=== PATIENT | female | born 1965 | race Two or more races ===

== ENCOUNTER 2024-07-14 08:46 | Outpatient (AMB) | payer MEDICAID, SELFPAY ==
[2024-07-14 09:08] VITALS: BP 109/76; PULSE 89; RESP 19; TEMP 35.9; O2SAT 97; BMI 35.0
--- NOTE | 2024-07-14 09:08 | ORTHONT_ITS ---
Vital signs 07/14/24 09:08 Height 1.73 m Height Method Stated Weight 104.808 kg Weight Measurement Method Standing Scale BMI 35.0 BP 109/76 Blood Pressure Source Automatic Cuff Blood Pressure Location Left Upper Arm Position Sitting Respiration 19 Pulse 89 Pulse Source Monitor Temp 96.7 F L Temp Source Temporal Artery Scan Pulse Oximetry (%) 97 Oxygen Delivery Method Room Air Med/Allergies Allergies & Medications Allergies No Known Allergies Allergy (Verified 07/14/24 09:09) Medication Reconciliation No Known Home Medications 05/05/24 [History Confirmed 07/14/24] Subjective Visit Visit for: follow up visit Immunization / Flu Flu Vaccine in the Last 12 Months: No Flu Vaccine Exclusion Criteria: No Exclusion Criteria History of Present Illness Chief complaint: FOLLOW UP Selena is a pleasant 58-year-old female With bilateral knee pain and bilateral hip arthritis. The right knee is worse than the left. The pain started affect her quality life and happiness. She has had injections every 3 months for 2 years. The last knee injection was 2 weeks ago. She reports she has gained a little bit of weight but is now stable. She takes Tylenol arthritis. She has pain in her groin as well as on the side of her pelvis as well. She can put on socks and shoes. She uses a cane She has lost some weight since we last saw her. She has lost 20 pounds since we last saw her Personal History Occupation: UNEMPLOYED Hobbies: WALKING Red flag PMH: none Pain Pain level (0-10): 10 Pain duration: CONSTANT Pain location: inside (medial) Pain quality: sharp, aching and burning Pain timing: night and increases with activity Associated signs & symptoms: none Ambulatory data Ambulatory device: cane Treatments Number of previous injections: 5 Improvement with previous injections: No Improvement with PT: No Improvement with NSAIDS: no Review of Systems Review of Systems: All systems negative unless otherwise noted in HPI. Exam Exam Patient is in no acute distress and is cooperative with the examination today. Breathing is nonlabored. In no respiratory distress. Bilateral extremities were evaluated and demonstrates sensation intact to light touch. Palpable pedal pulses are present. No significant edema is present. Bilateral hips were examined. The patient has no pain with log roll of the hips. Internal rotation to 0 degrees and external rotation to 15 degrees is painless. Negative FADIR. The left knee was examined. The left knee is in [varus] alignment. Range of motion from [0-115] degrees. Knee is stable to varus and valgus as well as AP translation with <5mm. Patient has a [negative] McMurrays. There is [no] pain with patellofemoral compression and [no] crepitus noted. The knee is [tender] to palpation [medially]. The right knee was also examined. The right knee is in [varus] alignment. Range of motion from [0-120] degrees. Knee is stable to varus and valgus as well as AP translation with <5mm. Patient has a [negative] McMurrays. There is [no] pain with patellofemoral compression and [no] crepitus noted. The knee is [tender] to palpation [medially]. X-rays are from [facility].X-rays demonstrate bilateral joint space narrowing and varus deformity. There Is complete obliteration of the medial joint space. SHe also has bilateral hip arthritis with complete obliteration of the joint space Assessment and Plan Problem List (1) Degenerative arthritis of knee, bilateral: Status: Acute Plan: Patient is a pleasant 58-year-old female with bilateral hip and knee arthritis of significant severity. We discussed nonoperative operative options. She is lost 20 pounds since we last saw her. She would like bilateral knee injections today. Will continue with conservative management that she continues to lose weight rapidly Recommend knee cortisone injections as patient would like to proceed with conservative treatment at this time. The risks and benefits of the procedure were reviewed with the patient and patient gave verbal consent to continue with the procedure. Procedure: performed by Dr. Moreno Using sterile technique the Bilateral knees were thoroughly prepped with alcohol, and approximately 1 cc of Kenalog 40 mg/mL and 4 cc of 1% lidocaine was injected into each knee without resistance into the medial tibial femoral joint space. The patient tolerated the procedure. (2) Bilateral hip joint arthritis: Status: Acute Office Procedures GNS Level of Care Nursing/Assessment Patient Status: Established Patient Nursing Assessment/Reassesment: Medication Reconciliation, Update PMH in EMR and Vital Signs Coordination of Care: Complex Care and Chronic Disease 1-5, Education Complex Pt/Fam, Consent,records obtained, informed consent, Results/Orders obtained and Staff clarify orders Established Patient Charge Established Patient Point Assignment: 95 Established Patient Point Charge: EP Level 3 (80-115) Surgical Proc/IM SQ injection Major Surgical Procedure: Yes (KNEE INJECTIONS ) Medication Given Medication Given Medication Given: Yes Documented Dose Given: 8 Route: Infiitration Medication Given Medication Given Medication Given: Yes Documented Dose Given: 2 Route: Infiitration Office Meds Xylocaine 10 mg/mL (1 %) injection solution Performing Provider: Marv Moreno MD Performing Location: [facility] Administered by: Marv Moreno MD on 07/14/24 15:37 Dose Route Admin Location Dispensed Lot Number Expiration Date [facility] Cap Sewer 40 mL Infiltration 40 mL [id number] [facility] triamcinolone acetonide 40 mg/mL suspension for injection Performing Provider: Marv Moreno MD Performing Location: [facility] Administered by: Marv Moreno MD on 07/14/24 15:37 Dose Route Admin Location Dispensed Lot Number Expiration Date [facility] Cap Sewer 80 mg intra-articular 2 mL [id number] [employer] Past Medical History Past Medical History Have you ever been diagnosed with any of the following: Cardiology Problems Myocardial Infarction: No Hypertension: Yes Respiratory Problems Asthma: Yes Smoking: No Smoking Cessation Counseling: No Smoking Exposure: No Endocrine Problems Diabetes Mellitus Type 2: Yes
== END 2024-07-14 09:26 | disposition home or self-care (01) ==
LOC: HODSRG 08:46
PROVIDERS: PCP Physician Assistant Medical; Referring Provider Physician Assistant Medical; Supervising Provider Orthopaedic Surgery Adult Reconstructive Orthopaedic Surgery; Visit Provider Orthopaedic Surgery Adult Reconstructive Orthopaedic Surgery
DX: M17.0 Bilateral primary osteoarthritis of knee (principal); M16.0 Bilateral primary osteoarthritis of hip; I10 Essential (primary) hypertension; E11.9 Type 2 diabetes mellitus without complications
CPT/HCPCS: 20610; 99213; J3301; J3490; G0463

== ENCOUNTER 2024-10-13 09:18 | Outpatient (AMB) | payer MEDICAID, SELFPAY ==
--- NOTE | 2024-10-13 09:33 | ORTHONT_ITS ---
Vital signs 10/13/24 09:47 Height 1.73 m Height Method Stated Weight 97.664 kg Weight Measurement Method Standing Scale BMI 32.6 BP 106/72 Blood Pressure Source Automatic Cuff Blood Pressure Location Left Upper Arm Position Sitting Respiration 19 Pulse 91 Pulse Source Monitor Temp 98.0 F Temp Source Temporal Artery Scan Pulse Oximetry (%) 97 Oxygen Delivery Method Room Air Med/Allergies Allergies & Medications Allergies No Known Allergies Allergy (Verified 10/13/24 09:48) Medication Reconciliation No Known Home Medications 05/05/24 [History Confirmed 10/13/24] Exam Exam Patient is in no acute distress and is cooperative with the examination today. Breathing is nonlabored. In no respiratory distress. Bilateral extremities were evaluated and demonstrates sensation intact to light touch. Palpable pedal pulses are present. No significant edema is present. Bilateral hips were examined. The patient has no pain with log roll of the hips. Internal rotation to 0 degrees and external rotation to 15 degrees is painless. Negative FADIR. The left knee was examined. The left knee is in [varus] alignment. Range of cecelia on from [0-115] degrees. Knee is stable to varus and valgus as well as AP translation with <5mm. Patient has a [negative] McMurrays. There is [no] pain with patellofemoral compression and [no] crepitus noted. The knee is [tender] to palpation [medially]. The right knee was also examined. The right knee is in [varus] alignment. Range of motion from [0-120] degrees. Knee is stable to varus and valgus as well as AP translation with <5mm. Patient has a [negative] McMurrays. There is [no] pain with patellofemoral compression and [no] crepitus noted. The knee is [tender] to palpation [medially]. X-rays are from [facility].X-rays demonstrate bilateral joint space narrowing and varus deformity. There Is complete obliteration of the medial joint space. SHe also has bilateral hip arthritis with complete obliteration of the joint space Assessment and Plan Problem List (1) Degenerative arthritis of knee, bilateral: Status: Acute Plan: Patient is a pleasant 58-year-old female with bilateral hip and knee arthritis of significant severity. We discussed nonoperative operative options. She has lost a total of 60 pounds in total. She would like bilateral knee injections today. She would also like a right total hip replacement as is affecting her quality life and happiness. We discussed total hip replacement in great detail and she would like to proceed. We Will do this with a lateral approach. Recommend knee cortisone injections as patient would like to proceed with conservative treatment at this time. The risks and benefits of the procedure were reviewed with the patient and patient gave verbal consent to continue with the procedure. Procedure: performed by Dr. Moreno Using sterile technique the Bilateral knees were thoroughly prepped with alcohol, and approximately 1 cc of Kenalog 40 mg/mL and 4 cc of 1% lidocaine was injected into each knee without resistance into the medial tibial femoral joint space. The patient tolerated the procedure. The nature and purpose of the total hip replacement, alternative method(s) of treatment, the material risks involved, and the possibility of complications were fully explained to the patient. The patient does NOT have any of the following contraindications to ZACH: - Active infection of the hip joint, OR - Active systemic bacteremia, OR - Active skin infection or open wound at surgical site, OR - Neuropathic arthritis, OR - Severe, rapidly progressive neurological disease, OR - Severe medical condition that makes risks of the surgery outweigh the potential benefit The patient was told the most common risks and complications associated with a total hip replacement include, but are not limited to: blood clots in the leg, fatal pulmonary embolism, dislocation of the prosthesis, intraoperative and postoperative fractures of the femur or acetabulum, infection, failure of the prosthesis or grafting materials, complications from anesthesia, reactions to blood transfusions, postoperative leg length inequality, instability of the hip replacement, nerve damage or injury, vascular injury, delayed wound healing, infection, other injury or even . In addition, there are risks associated with anesthesia given during this operation. Also, the patient was told that after undergoing a total hip replacement there may still be persistent pain or disability. The patient was informed that the success of this operation in part depends upon the mechanical devices which are going to be implanted and that these devices can fail or malfunction, and may need to be repaired or replaced and there are no guarantees as to the longevity of this device or its parts and that it or its parts could fail prematurely. The patient was also notified that during the course of surgery, there may be a need to use bone graft from donors, and that any bone graft used will be carefully screened for communicable diseases, including AIDS, hepatitis, Carlitos-Creutzfeldt, or other diseases, but despite the screening procedures, there is a small chance that they could contract one of these diseases. Finally, the patient was asked to follow completely and fully with all advice and recommended treatments, and that recovery and ultimate outcome are affected by their compliance with recommended treatment. We discussed the risks, benefits and treatment alternatives, and the patient is interested in proceeding with surgery. We will try to set this up as expeditiously as possible. (2) Bilateral hip joint arthritis: Status: Acute Office Procedures GNS Level of Care Nursing/Assessment Patient Status: Established Patient Nursing Assessment/Reassesment: Medication Reconciliation, Update PMH in EMR and Vital Signs Coordination of Care: Complex Care and Chronic Disease 1-5, Education Complex Pt/Fam, Consent,records obtained, informed consent, Results/Orders obtained and Staff clarify orders Established Patient Charge Established Patient Point Assignment: 95 Established Patient Point Charge: EP Level 3 (80-115) Surgical Proc/IM SQ injection Major Surgical Procedure: Yes (BILARERAL KNEE INJECTION) Medication Given Medication Given Medication Given: Yes Documented Dose Given: 8 Route: Infiitration Medication Given Medication Given Medication Given: Yes Documented Dose Given: 2 Route: Infiitration Office Meds Xylocaine 10 mg/mL (1 %) injection solution Performing Provider: Marv Moreno MD Performing Location: [facility] Administered by: Marv Moreno MD on 10/13/24 10:04 Dose Route Admin Location Dispensed Lot Number Expiration Date [facility] Otolaryngology Rep 40 mL Infiltration 40 mL [id number] 02/09/28 60027-199-58 [facility] triamcinolone acetonide 40 mg/mL suspension for injection Performing Provider: Marv Moreno MD Performing Location: [facility] Administered by: Marv Moreno MD on 10/13/24 10:04 Dose Route Admin Location Dispensed Lot Number Expiration Date [facility] Otolaryngology Rep 80 mg intra-articular 2 mL [id number] 01/08/26 9607-7194-10 [facility] [place] Intake Visit Data Collection New Patient or Established: Established Patient (seen at [facility] within 3 years) Reason for Visit:: BILATERAL KNEE INJECTION Seen by Clinical Staff ONLY (RN/MA): No Interventional Physiatrist Required: No PCP or OBGYN visit in last 3 months: Yes Hx Now: No Do You Feel Safe at Home: Yes Authorities Contacted: N/A Questionairres Past Medical History Past Medical History Have you ever been diagnosed with any of the following: Cardiology Problems Myocardial Infarction: No Hypertension: Yes Respiratory Problems Asthma: Yes Smoking: No Smoking Cessation Counseling: No Smoking Exposure: No Endocrine Problems Diabetes Mellitus Type 2: Yes Subjective Visit Visit for: follow up visit, knee (BILATERAL) and injections Immunization / Flu Flu Vaccine in the Last 12 Months: No Flu Vaccine Exclusion Criteria: No Exclusion Criteria History of Present Illness Chief complaint: Right hip pain Selena is a pleasant 59-year-old female with bilateral hip and bilateral knee pain. This has been ongoing for a while. She is using a cane because of the pain. We have done prior knee injections in the past and they work about 3 months. She is also had a right hip injection in the past that provided very little relief. The pain is affecting her quality life and happiness Pain Pain level (0-10): 8 Pain duration: ALL DAY Pain location: inside (medial) and anterior Pain quality: dull and aching Pain timing: increases with activity and stairs Ambulatory data Ambulatory device: cane Treatments Improvement with previous injections: Yes Improvement with PT: No Improvement with NSAIDS: no Review of Systems Review of Systems: All systems negative unless otherwise noted in HPI.
[2024-10-13 09:47] VITALS: BP 106/72; PULSE 91; RESP 19; TEMP 36.7; O2SAT 97; BMI 32.6
== END 2024-10-13 09:54 | disposition home or self-care (01) ==
LOC: HODSRG 09:18
PROVIDERS: PCP Physician Assistant Medical; Referring Provider Physician Assistant Medical; Supervising Provider Orthopaedic Surgery Adult Reconstructive Orthopaedic Surgery; Visit Provider Orthopaedic Surgery Adult Reconstructive Orthopaedic Surgery
DX: M25.561 Pain in right knee (principal); M25.562 Pain in left knee; M25.551 Pain in right hip; M17.0 Bilateral primary osteoarthritis of knee
CPT/HCPCS: 20610; 99213; J3301; J3490; G0463

== ENCOUNTER 2024-10-30 13:44 | Outpatient (AMB) | payer MEDICAID, SELFPAY ==
--- NOTE | 2024-10-30 14:05 | ORTHONT_ITS ---
Vital signs 10/30/24 14:10 Height 1.73 m Height Method Stated Weight 98.118 kg Weight Measurement Method Standing Scale BMI 32.8 BP 98/65 Blood Pressure Source Automatic Cuff Blood Pressure Location Right Upper Arm Position Sitting Respiration 18 Pulse 83 Pulse Source Monitor Temp 98.0 F Temp Source Temporal Artery Scan Pulse Oximetry (%) 97 Oxygen Delivery Method Room Air Med/Allergies Allergies & Medications Allergies No Known Allergies Allergy (Verified 10/13/24 09:48) Exam Exam Patient is in no acute distress and is cooperative with the examination today. Breathing is nonlabored. In no respiratory distress. Bilateral extremities were evaluated and demonstrates sensation intact to light touch. Palpable pedal pulses are present. No significant edema is present. Bilateral hips were examined. The patient has no pain with log roll of the hips. Internal rotation to 0 degrees and external rotation to 15 degrees is painless. Negative FADIR. The left knee was examined. The left knee is in [varus] alignment. Range of motion from [0-115] degrees. Knee is stable to varus and valgus as well as AP translation with <5mm. Patient has a [negative] McMurrays. There is [no] pain with patellofemoral compression and [no] crepitus noted. The knee is [tender] to palpation [medially]. The right knee was also examined. The right knee is in [varus] alignment. Range of motion from [0-120] degrees. Knee is stable to varus and valgus as well as AP translation with <5mm. Patient has a [negative] McMurrays. There is [no] pain with patellofemoral compression and [no] crepitus noted. The knee is [tender] to palpation [medially]. X-rays are from [facility].X-rays demonstrate bilateral joint space narrowing and varus deformity. There Is complete obliteration of the medial joint space. SHe also has bilateral hip arthritis with complete obliteration of the joint space Assessment and Plan Problem List (1) Degenerative arthritis of knee, bilateral: Status: Acute Plan: Patient is a pleasant 58-year-old female with bilateral hip and knee arthritis of significant severity. We discussed nonoperative operative options. She has lost a total of 60 pounds in total. She would like bilateral knee injections today. She would also like a right total hip replacement as is affecting her quality life and happiness. We discussed total hip replacement in great detail and she would like to proceed. We Will do this with a lateral approach. The nature and purpose of the total hip replacement, alternative method(s) of treatment, the material risks involved, and the possibility of complications were fully explained to the patient. The patient does NOT have any of the following contraindications to ZACH: - Active infection of the hip joint, OR - Active systemic bacteremia, OR - Active skin infection or open wound at surgical site, OR - Neuropathic arthritis, OR - Severe, rapidly progressive neurological disease, OR - Severe medical condition that makes risks of the surgery outweigh the potential benefit The patient was told the most common risks and complications associated with a total hip replacement include, but are not limited to: blood clots in the leg, fatal pulmonary embolism, dislocation of the prosthesis, intraoperative and postoperative fractures of the femur or acetabulum, infection, failure of the prosthesis or grafting materials, complications from anesthesia, reactions to blood transfusions, postoperative leg length inequality, instability of the hip replacement, nerve damage or injury, vascular injury, delayed wound healing, infection, other injury or even . In addition, there are risks associated with anesthesia given during this operation. Also, the patient was told that after undergoing a total hip replacement there may still be persistent pain or disability. The patient was informed that the success of this operation in part depends upon the mechanical devices which are going to be implanted and that these devices can fail or malfunction, and may need to be repaired or replaced and there are no guarantees as to the longevity of this device or its parts and that it or its parts could fail prematurely. The patient was also notified that during the course of surgery, there may be a need to use bone graft from donors, and that any bone graft used will be carefully screened for communicable diseases, including AIDS, hepatitis, Carlitos-Creutzfeldt, or other diseases, but despite the screening procedures, there is a small chance that they could contract one of these diseases. Finally, the patient was asked to follow completely and fully with all advice and recommended treatments, and that recovery and ultimate outcome are affected by their compliance with recommended treatment. We discussed the risks, benefits and treatment alternatives, and the patient is interested in proceeding with surgery. We will try to set this up as expeditiously as possible. (2) Bilateral hip joint arthritis: Status: Acute Office Procedures GNS Level of Care Nursing/Assessment Patient Status: Established Patient Nursing Assessment/Reassesment: BP Monitoring, Medication Reconciliation, Update PMH in EMR and Vital Signs Coordination of Care: Complex Care and Chronic Disease 1-5, Consent,records obtained, informed consent and Lab and Imaging orders Established Patient Charge Established Patient Point Assignment: 90 Established Patient Point Charge: EP Level 3 (80-115) MA Intake Visit Data Collection New Patient or Established: Established Patient (seen at [facility] within 3 years) Reason for Visit:: PREOP RTHA Seen by Clinical Staff ONLY (RN/MA): No Verbal consent obtained for Telemed visit?: No PCP or OBGYN visit in last 3 months: No Hx Now: No Do You Feel Safe at Home: Yes Authorities Contacted: N/A Questionairres Past Medical History Past Medical History Have you ever been diagnosed with any of the following: Cardiology Problems Myocardial Infarction: No Hypertension: Yes Respiratory Problems Asthma: Yes Smoking: No Smoking Cessation Counseling: No Smoking Exposure: No Endocrine Problems Diabetes Mellitus Type 2: Yes Subjective Visit Visit for: follow up visit (PREOP ZACH) Immunization / Flu Flu Vaccine in the Last 12 Months: No Flu Vaccine Exclusion Criteria: No Exclusion Criteria History of Present Illness Chief complaint: PRE OP Selena is a pleasant 59-year-old female with bilateral hip and bilateral knee pain. This has been ongoing for a while. She is using a cane because of the pain. We have done prior knee injections in the past and they work about 3 months. She is also had a right hip injection in the past that provided very little relief. The pain is affecting her quality life and happiness. We are scheduled for hip replacement in 3 weeks Pain Pain level (0-10): 5 Pain duration: CONSTANT Pain location: inside (medial), outside (lateral) and anterior Pain quality: sharp, dull and aching Pain timing: increases with activity and stairs Ambulatory data Ambulatory device: cane Treatments Improvement with previous injections: Yes Improvement with PT: No Improvement with NSAIDS: no Review of Systems Review of Systems: All systems negative unless otherwise noted in HPI.
[2024-10-30 14:10] VITALS: BP 98/65; PULSE 83; RESP 18; TEMP 36.7; O2SAT 97; BMI 32.8
== END 2024-10-30 14:40 | disposition home or self-care (01) ==
LOC: HODSRG 13:44
PROVIDERS: PCP Physician Assistant Medical; Referring Provider Physician Assistant Medical; Supervising Provider Orthopaedic Surgery Adult Reconstructive Orthopaedic Surgery; Visit Provider Orthopaedic Surgery Adult Reconstructive Orthopaedic Surgery
DX: M17.0 Bilateral primary osteoarthritis of knee (principal); I10 Essential (primary) hypertension; J45.909 Unspecified asthma, uncomplicated; M16.0 Bilateral primary osteoarthritis of hip
CPT/HCPCS: 99213; G0463

== ENCOUNTER → 2024-11-18 | Outpatient (CLI) | payer MEDICAID, SELFPAY ==
--- NOTE | 2024-11-18 08:00 | XR_ITS ---
Examination: CT right lower extremity, without contrast. 2-D sagittal reconstructions. 2-D coronal reconstructions. 3-D reconstructions. Date and time of exam:November 18, 2024 0846 hrs. Indications: Diagnosis unilateral primary osteoarthritis right hip, right hip pain one year CTDI: vol (mGy):16.7 DLP: (mGycm):993 Technique: Multiple 1.25 mm axial sections of the right lower extremity without intravenous contrast have been obtained. 2-D sagittal and coronal reconstructions have been obtained. 3-D reconstructions have been obtained. Low dose protocols were performed. One or more of the following dose reduction techniques were used; automated exposure control, adjustment of the mA and/or KV according to patient size, use of iterative reconstruction technique. Findings: Severe osteopenia Severe right hip osteoarthritis, severe joint space narrowing and subarticular sclerotic changes Advanced left hip osteoarthritis Bones of the pelvis intact Severe narrowing [id number] medial joint space right knee Advanced narrowing medial joint space left knee Significant bilateral osteoarthritis lateral patellofemoral joints Impression: Severe right hip osteoarthritis Advanced left hip osteoarthritis Significant bilateral tricompartment knee osteoarthritis
== END | disposition home or self-care (01) ==
PROVIDERS: PCP Student in an Organized Health Care Education/Training Program; Referring Provider Orthopaedic Surgery Adult Reconstructive Orthopaedic Surgery; Visit Provider Orthopaedic Surgery Adult Reconstructive Orthopaedic Surgery
DX: M16.11 Unilateral primary osteoarthritis, right hip (principal); M16.0 Bilateral primary osteoarthritis of hip; M17.0 Bilateral primary osteoarthritis of knee
CPT/HCPCS: 72192; 73700

== ENCOUNTER 2024-11-25 05:50 | Day surgery (SDC) | payer MEDICAID, SELFPAY ==
[2024-11-24 09:12] VITALS: BMI 32.6
[2024-11-24 11:42] LABS: Basophils # (Auto) 0.1 Thou/mm3 (0.0-0.2); Basophils % (Auto) 1 % (0-2.5); Eosinophils # (Auto) 0.1 Thou/mm3 (0.0-0.5); Eosinophils % (Auto) 1 % (0-10); Hematocrit 33.3 % (36.0-46.0); Hemoglobin 10.8 g/dL (12.0-16.0); Immature Granulocytes % (Auto) 0 % (0-0); Immature Granulocytes Auto 0.02 Thou/mm3 (0.00-0.00); Lymphocytes % (Auto) 29 % (10-50); Mean Corpuscular HGB Conc 32.4 g/dl (31.0-37.0); Mean Corpuscular Hemoglobin 29.9 pg (25.0-35.0); Mean Corpuscular Volume 92 fL (80-100); Monocytes # (Auto) 0.4 Thou/mm3 (0.0-0.8); Monocytes % (Auto) 6 % (0-12); Neutrophils # (Auto) 4.2 Thou/mm3 (1.8-7.7); Neutrophils % (Auto) 62 % (37-80); Nucleated Red Blood Cell % 0 /100 WBC (0); Platelet Count 295 Thou/mm3 (140-440); RDW Standard Deviation 47.4 fL (36.4-46.3); Red Blood Count 3.61 Miln/mm3 (4.00-5.20); White Blood Count 6.8 Thou/mm3 (3.6-11.0)
[2024-11-24 11:51] LABS: Partial Thromboplastin Time 24.5 Seconds (22.0-36.0); Prothrombin Time 10.8 Seconds (9.0-12.2)
[2024-11-24 12:04] LABS: Alanine Aminotransferase 15 U/L (10-49); Albumin, Serum 4.4 gm/dL (3.4-4.8); Albumin/Globulin Ratio 1.8 (1.2-2.2); Alkaline Phosphatase 82 U/L (46-116); Anion Gap 8 (7-16); Aspartate Amino Transferase 13 U/L (0-34); BUN/Creatinine Ratio 15 Ratio (12-20); Bilirubin,Total 0.5 mg/dL (0.3-1.2); Blood Urea Nitrogen 12 mg/dL (9-23); Calcium 9.4 mg/dL (8.3-10.6); Calcium (Corrected) 9.4 mg/dL (8.5-10.1); Carbon Dioxide 29.9 mMol/L (20.0-31.0); Chloride 103 mMol/L (98-107); Creatinine (Component) 0.8 mg/dL (0.6-1.3); Estimated Creatinine Clearance 91.3 mL/min (>60); Globulin 2.5 gm/dL (2.3-3.5); Glucose 96 mg/dL (74-106); Osmolality,Calculated 280 (275-295); Potassium 3.5 mMol/L (3.4-5.1); Sodium 141 mMol/L (136-145); Total Protein 6.9 gm/dL (5.7-8.2); eGFR > 60 See Note
[2024-11-25] VITALS (27 sets, daily range): BP systolic 79–126; BP diastolic 50–82; PULSE 65–105; RESP 12–94; TEMP 36.1–37; O2SAT 93–100; BMI 32.6
[2024-11-25] MEDS: ACETAMINOPHEN 325 MG TABLET 650 MG PO (06:35)
[2024-11-25] MEDS: PREGABALIN 75 MG CAPSULE PO (06:35)
[2024-11-25] MEDS: MELOXICAM 7.5 MG TABLET PO ×2 (06:35→20:25)
[2024-11-25] MEDS: RINGERS LACTATED 1000 ML 1,000 ML 20 ML IV (06:36)
--- NOTE | 2024-11-25 07:15 | CHAP ---
Visited with patient giving encouragement, comfort and prayer.
--- NOTE | 2024-11-25 09:38 | XR_ITS ---
Examination: Right hip 2 views TECHNIQUE: AP and attempted lateral right hip 2 views Exam date and time: November 25, 2024 0939 hours INDICATIONS: Right hip arthroplasty today FINDINGS: Partial visualization acetabular cup and prosthetic right hip stem IMPRESSION: Limited study
--- NOTE | 2024-11-25 10:39 | ESOP_ITS ---
Date of Procedure 11/25/24 Pre Op Diagnosis right hip osteoarthritis Post Op Diagnosis right hip osteoarthritis Procedure right total hip replacement Findings full thickness cartilage loss and osteophytes Procedure Description Indications: The patient is a 59y.o. year-old with a longstanding history of right hip pain. After considering the patient's condition and the impact of their hip injury on the patient's quality of life and risks of nonoperative treatment, total hip replacement was offered as a reasonable option. Prior to the surgery I discussed the nature of the hip replacement surgery including alternatives to surgery and the purpose of, and indications for proceeding with surgery. I discussed that this surgery is a shared decision between the patient and the surgeon. Risks and benefits and alternatives of the procedure have been explained to the patient and their family. Anesthesia complications and risks include but are not limited to stroke, heart attack, and . The surgical risks include but are not limited to infection, instability/dislocation, bleeding, nerve and blood vessel injury, deep vein thrombosis, pulmonary embolus, stiffness, pain, scar, need for reoperation, leg length discrepancy, thigh numbness, weakness, and mechanical failure of the implant including loosening, metal complications, metal allergy, wear or breakage. I discussed the expected recovery from surgery and the importance of compliance with all our pre and post-operative recommendations in order to maximize the recovery. The patient/family understands the risks of loss of life, loss of limb and, loss of function and wishes to proceed. They understand they are at increased risk for infection given their history of smoking. A signed and witnessed consent was obtained and placed in the chart. Patient Positioning: The patient was placed in the lateral decubitus position on a standard table using a pegboard. An axillary role was placed. All extremities were padded to ensure adequate protection. A kerr catheter was aseptically inserted. Time Out: A timeout was performed prior to the procedure which verified the correct patient, positioning, operation to be performed, operative site, antibiotics, allergies, imaging, and any other concerns. All parties were in agreement. Procedure in detail: The operative site was cleaned and draped in the usual sterile fashion. A final timeout was performed with all parties in agreement. We first placed the pelvic array. A modified anterolateral approach to the hip was utilized. A 16cm skin incision was made centered over the greater trochanter in line with the femur. This was taken down through skin and subcutaneous tissue using a 10 blade. Bleeding was controlled using electrocautery. The fascia was identified and split in line with the femur. The charnley retractor was then placed. The abductor insertion was identified and a split made in the anterior 1/3 of the tendon proximally. Retractors were placed and the gluteus minimus was visualized. A capsulotomy was made down to the femoral neck anterior to the minimus. A split was then made in the anterior 1/3 of the vastus lateralis. A retractor was then placed anterior to the femoral shaft, the tendon was tagged with #1 ethibond sutures and a U-shaped split was made in the anterior 1/3 of the abductor tendon being careful to leave enough tendon to re-attach. The hip was then gently externally rotated as the anterior tissues were taken down with the tendon and capsule as one sleeve. Once the anterior tissue had been release off of bone a bone hook was placed and the hip was gently dislocated. Retractors were placed around the femoral neck and the femoral neck osteotomy was then made to freshen up the cut. The femoral head removed. The leg was then placed in extension and retractors were placed anterior and posterior to the acetabulum. The inferior capsule was release to improved visua lization and the labrum and osteophytes around the acetabulum were removed. The acetabulum was then reamed to bleeding bone with adequate wall coverage and the cup was impacted into place. Screws were then placed followed by the liner which was impacted and confirmed to be seated. We then turned our attention to the femur. The leg was brought into external rotation and the femur was exposed. A canal finder was used followed by a box osteotomy and the femur was broached sequentially. The trial stem was then left in and the hip was trialed using various neck offsets and head sizes until the appropriate size was found based on leg length, stability. The hip was then dislocated and the trials were then removed and the final stem impacted into placed. On the last tap of the femoral implant a crack was observed of the anterior cortex. It was explored and was not found to extend more than 3cm down and was nondisplaced. We removed the implant and placed two cables one below and one above the lesser trochanter ensuring that we hugged bone. We rotated the femoral stem and it was stable axially. The hip was then again trialed and the appropriate head size identified. The piedra taper was then cleaned and dried and the final head impact into place and tested. The acetabulum was irrigated and confirmed to be free of debris. The hip was then reduced and taken through range of motion. The hip was stable in abduction and external rotation, adduction and external rotation, flexion past 90 degrees and internal rotation past 20 degrees. It did not sublux throughout range of motion and no impingement was detected. Leg lengths were appropriately restored based on preoperative leg lengths and intraoperative testing. . The hip was then copiously irrigated with dilute betadine followed by normal saline. The hip was then injected with the cocktail per protocol The hip was the closed in layers. The abductor tendon was closed with #1 ethibond. The fascia was closed with 0 Vicryl followed by an 0 V-lock. . The deep layer was closed with 0-Vicryl and the subcutaneous layer by a 2-0 Vicryl. The subdermal layer was closed with a 3-0 monocryl. The skin was then cleaned and dried and steri-s trips placed followed by a sterile dressing. The drapes were then taken down and the patient was placed supine. Leg lengths were confirmed to be appropriate and the patient's lower extremities were warm and well perfused with brisk capillary refill and palpable pulses. The patient was then awoken, transferred to the [facility] and taken to the PACU in stable condition. They tolerated the procedure well. The patient's family/caregiviers were made aware of their condition. Postoperative plan Activity: TTWB RLE, no hip precautions , no active hip abduction DVT Prophylaxis: aspirin 81mg BID Antibiotics: Standard postoperative antibiotics x 24 hours Implants: Amrita 48 cup, 3HO insignia, 2 screws, standard liner, 36-2.5 head Anesthesia GETA Drains none Pathology / specimen None Pathology comment: none Estimated Blood Loss 200 Condition Stable Disposition floor Surgeon Marv Moreno MD Surgical Staff Operation Date: 11/25/24 07:30 Case Staff Anesthesiologist: Marcin Alicia RN First Assistant: Delmis Roy
--- NOTE | 2024-11-25 10:39 | XR_ITS ---
Examination:Right hip AP, lateral, AP pelvis 3 views Technique: Hip AP lateral, AP pelvis, 3 views Exam date and time:November 25, 2024 1144 hours INDICATIONS: Postop right hip arthroplasty FINDINGS: Total right hip arthroplasty. Satisfactory alignment. No fracture. Bones of the pelvis intact. Advanced left hip osteoarthritis IMPRESSION: Total right hip arthroplasty with satisfactory alignment.
--- NOTE | 2024-11-25 11:15 | SUR.PHASEI ---
1115: Pt. AAOx4, vitals stable, breathing unlabored, no complaint of pain or nausea, dressing to right hip CDI, no active bleed noted, bilateral dorsalis pedis pulses strong and regular, cap refill to bilateral feet less than 3 seconds, pt. able to move bilateral legs, report received from MD Alicia and Raghu RAY.
--- NOTE | 2024-11-25 11:49 | SUR.PHASEI ---
pt lying in bed with eyes open, VS stable, xray at bedside, report from Sanjuana RAY
--- NOTE | 2024-11-25 11:55 | SUR.PHASEI ---
pt awake, alert, able to follow commands, breathing unlabored, dressing to right hip clean, dry, and intact, pt tolerating oral fluids without difficulty swallowing or n/v
--- NOTE | 2024-11-25 12:10 | SUR.PHASEII ---
while pt sleeps, O2 drops to 89%, 3L nasal cannula applied, O2 returned to 97%
--- NOTE | 2024-11-25 12:26 | SUR.PHASEII ---
Report to Sanjuana RAY
[2024-11-25] MEDS: ALBUTEROL RT 2.5 MG/3 ML NEBU INH (13:08)
[2024-11-25] MEDS: ACETAMINOPHEN IVPB 1,000 MG/100 ML VIAL 250 MG IV (13:58)
[2024-11-25] MEDS: HYDROmorphone INJ 2 MG/ML VIAL 0.4 MG IV (15:11)
--- NOTE | 2024-11-25 16:37 | SUR.PHASEII ---
1637: Report given to Evelyn RAY. Pt. AAOx4, vitals stable, breathing unlabored, no complaint of pain or nausea, dressing to right hip CDI.
--- NOTE | 2024-11-25 16:37 | SUR.PHASEII ---
1637 patient is awake, alert, breathing unlabored, s/p right hip replacement by Dr. Moreno, dressing to right hip dry with no bleeding, bilateral toes with good circulation, SCD present to left leg. Report received from Sanjuana RAY, patient in PACU bay 4 in holding phase waiting for Med Surg bed assignment.
[2024-11-25] MEDS: ceFAZolin/D5W 2 GM IV 2 GM/100 ML BAG IV (18:19)
--- NOTE | 2024-11-25 18:23 | SUR.PHASEII ---
Addendum entered by Evelyn Okeefe RN 11/25/24 18:29: patient able to tolerate dinner tray with no nausea or vomiting. Original Note: 1800 patient is awake, alert, breathing unlabored, dressing to right hip dry with no bleeding, report given to Chika RAY, patient transferred to room 351 via Hospital bed with trapeze. Family member Marzena called and informed of new bed assignment, no answer, message left.
[2024-11-25] MEDS: ACETAMINOPHEN 500 MG TABLET 1000 MG PO (20:31)
[2024-11-25] MEDS: ASPIRIN EC 81 MG TABEC PO (20:31)
[2024-11-25] MEDS: oxyCODONE HCL 5 MG IR TAB 10 MG PO (22:22)
[2024-11-26 04:00] VITALS: BP 115/72; PULSE 94; RESP 18; TEMP 36.9; O2SAT 95
[2024-11-26] MEDS: ACETAMINOPHEN 500 MG TABLET 1000 MG PO ×2 (05:29→12:10)
[2024-11-26 06:14] LABS: Basophils % (Auto) 0 % (0-2.5); Eosinophils % (Auto) 0 % (0-10); Hematocrit 28.7 % (36.0-46.0); Hemoglobin 9.2 g/dL (12.0-16.0); Immature Granulocytes % (Auto) 1 % (0-0); Immature Granulocytes Auto 0.05 Thou/mm3 (0.00-0.00); Lymphocytes # (Auto) 1.6 Thou/mm3 (1.0-4.8); Lymphocytes % (Auto) 16 % (10-50); Mean Corpuscular HGB Conc 32.1 g/dl (31.0-37.0); Mean Corpuscular Hemoglobin 29.5 pg (25.0-35.0); Mean Corpuscular Volume 92 fL (80-100); Monocytes # (Auto) 0.7 Thou/mm3 (0.0-0.8); Monocytes % (Auto) 8 % (0-12); Neutrophils # (Auto) 7.4 Thou/mm3 (1.8-7.7); Neutrophils % (Auto) 76 % (37-80); Nucleated Red Blood Cell % 0 /100 WBC (0); Platelet Count 242 Thou/mm3 (140-440); RDW Standard Deviation 47.9 fL (36.4-46.3); Red Blood Count 3.12 Miln/mm3 (4.00-5.20); White Blood Count 9.8 Thou/mm3 (3.6-11.0)
[2024-11-26 07:48] VITALS: BP 107/75; PULSE 84; RESP 17; TEMP 36.2; O2SAT 96
[2024-11-26] MEDS: ASPIRIN EC 81 MG TABEC PO (08:16)
[2024-11-26 08:17] VITALS: BP 107/75; PULSE 84
[2024-11-26] MEDS: amLODIPine BESYLATE 5 MG TABLET PO (08:17)
[2024-11-26 08:19] VITALS: BP 107/75; PULSE 84
[2024-11-26] MEDS: EZETIMIBE 10 MG TABLET PO (08:19)
[2024-11-26] MEDS: lorataDINE 10 MG TABLET PO (08:19)
[2024-11-26] MEDS: PANTOPRAZOLE INJ 40 MG VIAL IV (08:19)
[2024-11-26] MEDS: Lisinopril 20 MG TABLET 40 MG PO (08:19)
[2024-11-26] MEDS: hydroCHLOROthiazide 12.5 MG CAPSULE 25 MG PO (08:19)
[2024-11-26] MEDS: oxyCODONE HCL 5 MG IR TAB PO (09:09)
--- NOTE | 2024-11-26 11:33 | PC.SS ---
SS met with patient who is alert/oriented. Patient was able to verify demographics. Patient states she resides with family. Patient is independent with ADL's. She has a walker that she uses as needed. Patient was admitted for a right hip fracture with Dr. Moreno. Notes from PT indicate Dr. Moreno's office already ordered walker for patient which was at bedside and HH services. Patient has d/c orders for today. She will return home and family will continue to care for her. Patient has a follow up appt. with Dr. Moreno on December 10. Patient states family will provide transportation. Pharmacy: [facility] in [place]. PCP: [facility] in [place]. transportation upon discharge: family d/c plan: HH alt medical decision maker: Marzena Arechiga, [phone]
[2024-11-26 12:00] VITALS: BP 111/76; PULSE 106; RESP 18; TEMP 36.3; O2SAT 93
--- NOTE | 2024-11-26 13:03 | ESPR_ITS ---
Subjective Subjective Brief History: Right total hip replacement Narrative: Selena is doing well status post right total hip replacement. This was done yesterday. There was a intraoperative fracture and we fixed it with cables. She should be toe-touch weightbearing. She is able to walk 40 feet today Exam Vital Signs Temp Pulse Resp BP Pulse Ox O2 Del Method O2 Flow Rate 97.4 F 106 H 18 111/76 93 L Room Air 5 11/26/24 12:00 11/26/24 12:00 11/26/24 12:00 11/26/24 12:00 11/26/24 12:11/26/24 12:00 11/25/24 13:30 Additional findings Additional findings: Patient is in no acute distress and is cooperative with the examination today. Patient has a normal mood and affect. Breathing is nonlabored. In no respiratory distress. Bilateral extremities were evaluated and demonstrates sensation intact to light touch. Palpable pedal pulses are present. No significant edema is present. Right hip incisions clean dry intact. She is able to dorsiflex and plantarflex her ankles and feet bilaterally Objective - Ortho Labs 11/26/24 04:10 11/24/24 09:42 Labs: Laboratory Results - last 24 hr 11/26/24 04:10 WBC 9.8 D RBC 3.12 L Hgb 9.2 L Hct 28.7 L MCV 92 MCH 29.5 MCHC 32.1 RDW Std Deviation 47.9 H Plt Count 242 D Neut % (Auto) 76 Lymph % (Auto) 16 Gaston % (Auto) 8 Eos % (Auto) 0 Baso % (Auto) 0 Neut # (Auto) 7.4 Lymph # (Auto) 1.6 Gaston # (Auto) 0.7 Eos # (Auto) 0.0 Baso # (Auto) 0.0 Immature Gran # (Auto) 0.05 H Absolute Nucleated RBC 0.00 Immature Gran % 1 H Nucleated RBC % 0 Assessment & Plan Diagnosis (1) Bilateral hip joint arthritis: Status: Acute Assessment Additional comments: Patient is doing well status post right total hip replacement. She should be toe-touch weightbearing. She is doing well. She should finish her DVT prophylaxis - Pain control - Aspirin for DVT prophylaxis - Toe-touch weightbearing - Follow-up in 2 weeks
== END 2024-11-26 13:06 | disposition home or self-care (01) ==
LOC: S2EX 18:28 → S3NX 12-01 07:40
PROVIDERS: Anesthesiology; PCP Student in an Organized Health Care Education/Training Program; Referring Provider Orthopaedic Surgery Adult Reconstructive Orthopaedic Surgery; Visit Provider Orthopaedic Surgery Adult Reconstructive Orthopaedic Surgery
PROC: (CPT 27130; principal; 2024-11-25 07:30)
DX: M16.11 Unilateral primary osteoarthritis, right hip (principal); Z87.891 Personal history of nicotine dependence; M25.751 Osteophyte, right hip
CPT/HCPCS: 27130; 36415; 73501; 73502; 80053; 85025; 85610; 85730; 87081; 97162; A4217; A4649; C1713; C1776; J0131; J0689; J1100; J2250; J2371; J2405; J2470; J2704; J3010; J3490; J7030; J7120; J7999; A4648; A9270; J1596

== ENCOUNTER 2024-12-10 09:46 | Outpatient (AMB) | payer MEDICAID, SELFPAY ==
--- NOTE | 2024-12-10 10:07 | XR_ITS ---
Examination:Right hip AP, lateral, AP pelvis 3 views Technique: Hip AP lateral, AP pelvis, 3 views Exam date and time:December 10, 2024 1029 hours INDICATIONS: Postop hip arthroplasty FINDINGS: Total right hip arthroplasty. Satisfactory alignment. No loosening of the prosthetic components Advanced left hip osteoarthritis severe joint space narrowing and subarticular sclerosis IMPRESSION: Total right hip arthroplasty with satisfactory alignment Severe left hip osteoarthritis.
--- NOTE | 2024-12-10 10:10 | PD.ORTHCLVIS ---
Med/Allergies Allergies & Medications Allergies No Known Allergies Allergy (Verified 11/25/24 16:43) Exam Exam Patient is in no acute distress and is cooperative with the examination today. Breathing is nonlabored. In no respiratory distress. Bilateral extremities were evaluated and demonstrates sensation intact to light touch. Palpable pedal pulses are present. No significant edema is present. Bilateral hips were examined. The patient has no pain with log roll of the hips. Internal rotation to 0 degrees and external rotation to 15 degrees is painless. Negative FADIR. The left knee was examined. The left knee is in [varus] alignment. Range of motion from [0-115] degrees. Knee is stable to varus and valgus as well as AP translation with <5mm. Patient has a [negative] McMurrays. There is [no] pain with patellofemoral compression and [no] crepitus noted. The knee is [tender] to palpation [medially]. The right knee was also examined. The right knee is in [varus] alignment. Range of motion from [0-120] degrees. Knee is stable to varus and valgus as well as AP translation with <5mm. Patient has a [negative] McMurrays. There is [no] pain with patellofemoral compression and [no] crepitus noted. The knee is [tender] to palpation [medially]. Right hip incision is clean dry and intact Assessment and Plan Problem List (1) Status post total hip replacement, right: Status: Acute Plan: Patient is a 59-year-old female with a right total hip replacement complicated by intraoperative fracture. She has been doing very well and has been toe-touch weightbearing. We will get new x-rays today but she appears to be doing very well. We will see her in approximately 2 weeks with repeat x-rays Questionairres Past Medical History Past Medical History Have you ever been diagnosed with any of the following: Neurological Problems Seizures: No Cardiology Problems Myocardial Infarction: No Hypercholesterolemia: Yes Congestive Heart Failure: No Hypertension: Yes Varicose Veins: Yes Respiratory Problems Chronic Obstructive Pulmonary Disease (COPD): No Asthma: Yes Smoking: No Smoking Cessation Counseling: No Smoking Exposure: No Stomache/Intestinal Problems Hepatitis: No Obesity: Yes Genital/Urinary Problems Renal Disease: No Reproductive Problems Previous Pregnancies: Yes Musculoskeletal Problems Arthritis: Yes Degenerative Disk Disease: Yes Endocrine Problems Diabetes Mellitus Type 1: No Diabetes Mellitus Type 2: Yes Other Problems Hospitalization: Yes Shingles: No Falls: No Blood Transfusions: No Blood Transfusion Reaction: No Anesthesia Reactions: No Chicken Pox: Yes Measles: Yes Mumps: Yes Cancer: No Subjective Immunization / Flu Flu Vaccine in the Last 12 Months: Yes Flu Vaccine Exclusion Criteria: Already Received History of Present Illness Chief complaint: Right hip replacement Patient is 2 weeks status post right total hip replacement. She reports she is doing well. There was an intraoperative fracture and she has been toe-touch weightbearing. She reports the pain is significantly better than before surgery and she is very happy Review of Systems Review of Systems: All systems negative unless otherwise noted in HPI.
[2024-12-10 10:17] VITALS: BP 120/87; PULSE 18; RESP 18; TEMP 36.2
== END 2024-12-10 10:22 | disposition home or self-care (01) ==
LOC: HODSRG 09:46
PROVIDERS: PCP Physician Assistant Medical; Referring Provider Physician Assistant Medical; Supervising Provider Orthopaedic Surgery Adult Reconstructive Orthopaedic Surgery; Visit Provider Orthopaedic Surgery Adult Reconstructive Orthopaedic Surgery
DX: Z96.641 Presence of right artificial hip joint (principal); I10 Essential (primary) hypertension; E78.00 Pure hypercholesterolemia, unspecified; J45.909 Unspecified asthma, uncomplicated; M16.12 Unilateral primary osteoarthritis, left hip
CPT/HCPCS: 73502; 99213; G0463

== ENCOUNTER 2024-12-24 12:57 | Outpatient (AMB) | payer MEDICAID, SELFPAY ==
--- NOTE | 2024-12-24 13:07 | PD.ORTHCLVIS ---
Vital signs 12/24/24 13:08 Height 1.73 m Height Method Stated Weight 95.311 kg Weight Measurement Method Standing Scale BMI 31.8 BP 118/79 Blood Pressure Source Automatic Cuff Blood Pressure Location Left Upper Arm Position Sitting Respiration 18 Pulse 108 H Pulse Source Monitor Temp 98.3 F Temp Source Temporal Artery Scan Pulse Oximetry (%) 95 Oxygen Delivery Method Room Air Med/Allergies Allergies & Medications Allergies No Known Allergies Allergy (Verified 12/24/24 13:08) Medication Reconciliation amlodipine 5 mg tablet 5 mg PO DAILY 11/24/24 [History Confirmed 12/24/24] cholecalciferol (vitamin D3) 1,250 mcg (50,000 unit) capsule 1,250 mcg PO QWEEK 11/24/24 [History Confirmed 12/24/24] ezetimibe 10 mg tablet (Zetia) 10 mg PO QDAY 11/24/24 [History Confirmed 12/24/24] fexofenadine 180 mg tablet 180 mg PO Q24H 11/24/24 [History Confirmed 12/24/24] hydrochlorothiazide 25 mg tablet 25 mg PO DAILY 11/24/24 [History Confirmed 12/24/24] lisinopril 40 mg tablet 40 mg PO DAILY 11/24/24 [History Confirmed 12/24/24] semaglutide (weight loss) 0.5 mg/0.5 mL subcutaneous pen injector (Wegovy) 0.5 mg subcut QWEEK 11/24/24 [History Confirmed 12/24/24] acetaminophen 500 mg tablet (Acetaminophen Extra Strength) 1,000 mg (2 x 500 mg) PO Q6H PRN pain #90 tabs 11/25/24 [Rx Confirmed 12/24/24] aspirin 81 mg tablet,delayed release 81 mg PO BID #60 tabs 11/25/24 [Rx Confirmed 12/24/24] doxycycline hyclate 100 mg tablet 100 mg PO BID #14 tabs 11/25/24 [Rx Confirmed 12/24/24] gabapentin 300 mg capsule 300 mg PO .qhs #30 caps 11/25/24 [Rx Confirmed 12/24/24] oxycodone 5 mg tablet 5 mg PO Q6H PRN pain #28 tabs 11/25/24 [Rx Confirmed 12/24/24] sennosides 8.6 mg-docusate sodium 50 mg tablet (Senna-S) 1 tab-cap PO QDAY #30 tabs 11/25/24 [Rx Confirmed 12/24/24] Exam Exam Patient is in no acute distress and is cooperative with the examination today. Breathing is nonlabored. In no respiratory distress. Bilateral extremities were evaluated and demonstrates sensation intact to light touch. Palpable pedal pulses are present. No significant edema is present. Bilateral hips were examined. The patient has no pain with log roll of the hips. Internal rotation to 0 degrees and external rotation to 15 degrees is painless. Negative FADIR. The left knee was examined. The left knee is in [varus] alignment. Range of motion from [0-115] degrees. Knee is stable to varus and valgus as well as AP translation with <5mm. Patient has a [negative] McMurrays. There is [no] pain with patellofemoral compression and [no] crepitus noted. The knee is [tender] to palpation [medially]. The right knee was also examined. The right knee is in [varus] alignment. Range of motion from [0-120] degrees. Knee is stable to varus and valgus as well as AP translation with <5mm. Patient has a [negative] McMurrays. There is [no] pain with patellofemoral compression and [no] crepitus noted. The knee is [tender] to palpation [medially]. Right hip incision is clean dry and intact. Leg lengths are 5 mm longer on the right Xrays demonstrate a ZACH in good alignment and posiiton with cerclage cables Assessment and Plan Problem List (1) Status post total hip replacement, right: Status: Acute Plan: Patient is a 59-year-old female with a right total hip replacement complicated by intraoperative fracture. 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 We recommend physical therapy outpatient at this point in time. She reports the left Hip pain is significantly worse than the right. She wants to get this done. She has tried injections anti-inflammatories and physical therapy at this point The nature and purpose of the total hip replacement, alternative method(s) of treatment, the material risks involved, and the possibility of complications were fully explained to the patient. The patient does NOT have any of the following contraindications to ZACH: - Active infection of the hip joint, OR - Active systemic bacteremia, OR - Active skin infection or open wound at surgical site, OR - Neuropathic arthritis, OR - Severe, rapidly progressive neurological disease, OR - Severe medical condition that makes risks of the surgery outweigh the potential benefit The patient was told the most common risks and complications associated with a total hip replacement include, but are not limited to: blood clots in the leg, fatal pulmonary embolism, dislocation of the prosthesis, intraoperative and postoperative fractures of the femur or acetabulum, infection, failure of the prosthesis or grafting materials, complications from anesthesia, reactions to blood transfusions, postoperative leg length inequality, instability of the hip replacement, nerve damage or injury, vascular injury, delayed wound healing, infection, other injury or even . In addition, there are risks associated with anesthesia given during this operation. Also, the patient was told that after undergoing a total hip replacement there may still be persistent pain or disability. The patient was informed that the success of this operation in part depends upon the mechanical devices which are going to be implanted and that these devices can fail or malfunction, and may need to be repaired or replaced and there are no guarantees as to the longevity of this device or its parts and that it or its parts could fail prematurely. The patient was also notified that during the course of surgery, there may be a need to use bone graft from donors, and that any bone graft used will be carefully screened for communicable diseases, including AIDS, hepatitis, Carlitos-Creutzfeldt, or other diseases, but despite the screening procedures, there is a small chance that they could contract one of these diseases. Finally, the patient was asked to follow completely and fully with all advice and recommended treatments, and that recovery and ultimate outcome are affected by their compliance with recommended treatment. We discussed the risks, benefits and treatment alternatives, and the patient is interested in proceeding with surgery. We will try to set this up as expeditiously as possible. Office Procedures GNS Level of Care Nursing/Assessment Patient Status: Established Patient Nursing Assessment/Reassesment: Medication Reconciliation, Update PMH in EMR and Vital Signs Coordination of Care: Complex Care and Chronic Disease 1-5, Education Complex Pt/Fam, Consent,records obtained, informed consent, Results/Orders obtained and Staff clarify orders Established Patient Charge Established Patient Point Assignment: 95 Established Patient Point Charge: Level 3 (80-115) [place] Intake Visit Data Collection New Patient or Established: Established Patient (seen at [facility] within 3 years) Reason for Visit:: RIGHT HIP TKA F/U Seen by Clinical Staff ONLY (RN/MA): No PCP or OBGYN visit in last 3 months: Yes Hx Now: No Do You Feel Safe at Home: Yes Authorities Contacted: N/A Questionairres Past Medical History Past Medical History Have you ever been diagnosed with any of the following: Neurological Problems Seizures: No Cardiology Problems Myocardial Infarction: No Hypercholesterolemia: Yes Congestive Heart Failure: No Hypertension: Yes Varicose Veins: Yes Respiratory Problems Chronic Obstructive Pulmonary Disease (COPD): No Asthma: Yes Smoking: No Smoking Cessation Counseling: No Smoking Exposure: No Stomache/Intestinal Problems Hepatitis: No Obesity: Yes Genital/Urinary Problems Renal Disease: No Reproductive Problems Previous Pregnancies: Yes Musculoskeletal Problems Arthritis: Yes Degenerative Disk Disease: Yes Endocrine Problems Diabetes Mellitus Type 1: No Diabetes Mellitus Type 2: Yes Other Problems Hospitalization: Yes Shingles: No Falls: No Blood Transfusions: No Blood Transfusion Reaction: No Anesthesia Reactions: No Chicken Pox: Yes Measles: Yes Mumps: Yes Cancer: No Subjective Visit Visit for: follow up visit and hip Immunization / Flu Flu Vaccine in the Last 12 Months: No Flu Vaccine Exclusion Criteria: No Exclusion Criteria History of Present Illness Chief complaint: Right hip replacement Patient is 4 weeks status post right total hip replacement. She reports she is doing well. There was an intraoperative fracture and she has been toe-touch weightbearing. She reports the pain is significantly better than before surgery and she is very happy. She reports the left hip hurts significantly more. For the left side, she had one hip injcetion and NSAIDs. She wants to get the left side done Pain Pain level (0-10): 3 Pain duration: ON AND OFF Pain location: outside (lateral) Pain quality: aching Ambulatory data Ambulatory device: walker Treatments Improvement with previous injections: No Improvement with PT: No Improvement with NSAIDS: no Review of Systems Review of Systems: All systems negative unless otherwise noted in HPI.
[2024-12-24 13:08] VITALS: BP 118/79; PULSE 108; RESP 18; TEMP 36.8; O2SAT 95; BMI 31.8
== END 2024-12-24 13:19 | disposition home or self-care (01) ==
LOC: HODSRG 12:57
PROVIDERS: PCP Physician Assistant Medical; Referring Provider Physician Assistant Medical; Supervising Provider Orthopaedic Surgery Adult Reconstructive Orthopaedic Surgery; Visit Provider Orthopaedic Surgery Adult Reconstructive Orthopaedic Surgery
DX: Z96.641 Presence of right artificial hip joint (principal); M25.552 Pain in left hip; I10 Essential (primary) hypertension; E78.00 Pure hypercholesterolemia, unspecified; E11.9 Type 2 diabetes mellitus without complications
CPT/HCPCS: 99213; G0463

== ENCOUNTER → 2025-01-08 | Outpatient (CLI) | payer MEDICAID, SELFPAY ==
--- NOTE | 2025-01-08 | XR_ITS ---
Examination: Bilateral hips, AP pelvis, 5 views Technique: AP, lateral views both hips, AP pelvis, 5 views Exam date and time: 04/10/2025 1140 hours indications: Bilateral hip pain one year FINDINGS: Total right hip arthroplasty, satisfactory alignment Advanced left hip osteoarthritis, severe narrowing left hip joint Mild sclerosis left femoral head Bones the pelvis intact IMPRESSION: Advanced left hip osteoarthritis, severe narrowing left hip joint
== END | disposition home or self-care (01) ==
LOC: CDIM 10:59
PROVIDERS: PCP Student in an Organized Health Care Education/Training Program; Referring Provider Orthopaedic Surgery Adult Reconstructive Orthopaedic Surgery; Visit Provider Orthopaedic Surgery Adult Reconstructive Orthopaedic Surgery
DX: M16.12 Unilateral primary osteoarthritis, left hip (principal); M25.852 Other specified joint disorders, left hip; M25.551 Pain in right hip; Z96.641 Presence of right artificial hip joint
CPT/HCPCS: 73523

== ENCOUNTER 2025-01-15 09:14 | Outpatient (AMB) | payer MEDICAID, SELFPAY ==
[2025-01-15 09:21] VITALS: BP 107/71; PULSE 78; RESP 18; TEMP 36.8; O2SAT 99; BMI 31.1
--- NOTE | 2025-01-15 09:21 | PD.ORTHCLVIS ---
Vital signs 01/15/25 09:21 Height 1.73 m Height Method Stated Weight 93.128 kg Weight Measurement Method Standing Scale BMI 31.1 BP 107/71 Blood Pressure Source Automatic Cuff Blood Pressure Location Right Upper Arm Position Sitting Respiration 18 Pulse 78 Pulse Source Monitor Temp 98.2 F Temp Source Temporal Artery Scan Pulse Oximetry (%) 99 Oxygen Delivery Method Room Air Med/Allergies Allergies & Medications Allergies No Known Allergies Allergy (Verified 01/15/25 09:22) Medication Reconciliation amlodipine 5 mg tablet 5 mg PO DAILY 11/24/24 [History Confirmed 01/15/25] cholecalciferol (vitamin D3) 1,250 mcg (50,000 unit) capsule 1,250 mcg PO QWEEK 11/24/24 [History Confirmed 01/15/25] ezetimibe 10 mg tablet (Zetia) 10 mg PO QDAY 11/24/24 [History Confirmed 01/15/25] fexofenadine 180 mg tablet 180 mg PO Q24H 11/24/24 [History Confirmed 01/15/25] hydrochlorothiazide 25 mg tablet 25 mg PO DAILY 11/24/24 [History Confirmed 01/15/25] lisinopril 40 mg tablet 40 mg PO DAILY 11/24/24 [History Confirmed 01/15/25] semaglutide (weight loss) 0.5 mg/0.5 mL subcutaneous pen injector (Wegovy) 0.5 mg subcut QWEEK 11/24/24 [History Confirmed 01/15/25] acetaminophen 500 mg tablet (Acetaminophen Extra Strength) 1,000 mg (2 x 500 mg) PO Q6H PRN pain #90 tabs 11/25/24 [Rx Confirmed 01/15/25] aspirin 81 mg tablet,delayed release 81 mg PO BID #60 tabs 11/25/24 [Rx Confirmed 01/15/25] doxycycline hyclate 100 mg tablet 100 mg PO BID #14 tabs 11/25/24 [Rx Confirmed 01/15/25] gabapentin 300 mg capsule 300 mg PO .qhs #30 caps 11/25/24 [Rx Confirmed 01/15/25] oxycodone 5 mg tablet 5 mg PO Q6H PRN pain #28 tabs 11/25/24 [Rx Confirmed 01/15/25] sennosides 8.6 mg-docusate sodium 50 mg tablet (Senna-S) 1 tab-cap PO QDAY #30 tabs 11/25/24 [Rx Confirmed 01/15/25] Exam Exam Patient is in no acute distress and is cooperative with the examination today. Breathing is nonlabored. In no respiratory distress. Bilateral extremities were evaluated and demonstrates sensation intact to light touch. Palpable pedal pulses are present. No significant edema is present. Bilateral hips were examined. The patient has no pain with log roll of the hips. Internal rotation to 0 degrees and external rotation to 15 degrees is painless. Negative FADIR. The left knee was examined. The left knee is in [varus] alignment. Range of motion from [0-115] degrees. Knee is stable to varus and valgus as well as AP translation with <5mm. Patient has a [negative] McMurrays. There is [no] pain with patellofemoral compression and [no] crepitus noted. The knee is [tender] to palpation [medially]. The right knee was also examined. The right knee is in [varus] alignment. Range of motion from [0-120] degrees. Knee is stable to varus and valgus as well as AP translation with <5mm. Patient has a [negative] McMurrays. There is [no] pain with patellofemoral compression and [no] crepitus noted. The knee is [tender] to palpation [medially]. Right hip incision is clean dry and intact. Leg lengths are 5 mm longer on the right Xrays demonstrate a ZACH in good alignment and posiiton with cerclage cables. Left hip x-rays demonstrates complete obliteration of The femoral acetabular joint space and significant osteophytes Assessment and Plan Problem List (1) Status post total hip replacement, right: Status: Acute Plan: Patient is a 59-year-old female with a right total hip replacement complicated by intraoperative fracture. She is doing great from the right side She reports the left Hip pain is significantly worse than the right. She wants to get this done. She has tried injections anti-inflammatories and physical therapy at this point She has also bilateral knee arthritis and would like bilateral knee injections today Recommend knee cortisone injections as patient would like to proceed with conservative treatment at this time. The risks and benefits of the procedure were reviewed with the patient and patient gave verbal consent to continue with the procedure. Procedure: performed by Dr. Moreno Using sterile technique the Bilateral knees were thoroughly prepped with alcohol, and approximately 1 cc of Kenalog 40 mg/mL and 4 cc of 1% lidocaine was injected into each knee without resistance into the medial tibial femoral joint space. The patient tolerated the procedure. The nature and purpose of the total hip replacement, alternative method(s) of treatment, the material risks involved, and the possibility of complications were fully explained to the patient. The patient does NOT have any of the following contraindications to ZACH: - Active infection of the hip joint, OR - Active systemic bacteremia, OR - Active skin infection or open wound at surgical site, OR - Neuropathic arthritis, OR - Severe, rapidly progressive neurological disease, OR - Severe medical condition that makes risks of the surgery outweigh the potential benefit The patient was told the most common risks and complications associated with a total hip replacement include, but are not limited to: blood clots in the leg, fatal pulmonary embolism, dislocation of the prosthesis, intraoperative and postoperative fractures of the femur or acetabulum, infection, failure of the prosthesis or grafting materials, complications from anesthesia, reactions to blood transfusions, postoperative leg length inequality, instability of the hip replacement, nerve damage or injury, vascular injury, delayed wound healing, infection, other injury or even . In addition, there are risks associated with anesthesia given during this operation. Also, the patient was told that after undergoing a total hip replacement there may still be persistent pain or disability. The patient was informed that the success of this operation in part depends upon the mechanical devices which are going to be implanted and that these devices can fail or malfunction, and may need to be repaired or replaced and there are no guarantees as to the longevity of this device or its parts and that it or its parts could fail prematurely. The patient was also notified that during the course of surgery, there may be a need to use bone graft from donors, and that any bone graft used will be carefully screened for communicable diseases, including AIDS, hepatitis, Carlitos-Creutzfeldt, or other diseases, but despite the screening procedures, there is a small chance that they could contract one of these diseases. Finally, the patient was asked to follow completely and fully with all advice and recommended treatments, and that recovery and ultimate outcome are affected by their compliance with recommended treatment. We discussed the risks, benefits and treatment alternatives, and the patient is interested in proceeding with surgery. We will try to set this up as expeditiously as possible. Office Procedures GNS Level of Care Nursing/Assessment Patient Status: Established Patient Nursing Assessment/Reassesment: Medication Reconciliation, Update PMH in EMR and Vital Signs Coordination of Care: Complex Care and Chronic Disease 1-5, Education Complex Pt/Fam, Consent,records obtained, informed consent, 2-3 Insurance Autorizations needed, Results/Orders obtained and Staff clarify orders Established Patient Charge Established Patient Point Assignment: 115 Established Patient Point Charge: EP Level 3 (80-115) Surgical Proc/IM SQ injection Major Surgical Procedure: Yes (BILATERAL KNEE INJECTION) Medication Given Medication Given Medication Given: Yes Documented Dose Given: 8 Route: Infiitration Medication Given Medication Given Medication Given: Yes Documented Dose Given: 2 Route: Infiitration Office Meds Xylocaine 10 mg/mL (1 %) injection solution Performing Provider: Marv Moreno MD Performing Location: [facility] Administered by: Marv Moreno MD on 01/15/25 09:50 Dose Route Admin Location Dispensed Lot Number Expiration Date [facility] [employer] 40 mL Infiltration 40 mL [id number] 05/11/25 37709-522-97 [facility] triamcinolone acetonide 40 mg/mL suspension for injection Performing Provider: Marv Moreno MD Performing Location: [facility] Administered by: Marv Moreno MD on 01/15/25 09:50 Dose Route Admin Location Dispensed Lot Number Expiration Date [facility] [employer] 80 mg intra-articular 2 mL [id number] 03/10/26 16181-860-78 YOLANDA WILKERSON MA Intake Visit Data Collection New Patient or Established: Established Patient (seen at [facility] within 3 years) Reason for Visit:: PRE-OP LEFT ZACH Seen by Clinical Staff ONLY (RN/MA): No Verbal consent obtained for Telemed visit?: No Director Operations Broadcast Required: No PCP or OBGYN visit in last 3 months: Yes Hx Now: No Do You Feel Safe at Home: Yes Authorities Contacted: N/A Questionairres Past Medical History Past Medical History Have you ever been diagnosed with any of the following: Neurological Problems Seizures: No Cardiology Problems Myocardial Infarction: No Hypercholesterolemia: Yes Congestive Heart Failure: No Hypertension: Yes Varicose Veins: Yes Respiratory Problems Chronic Obstructive Pulmonary Disease (COPD): No Asthma: Yes Smoking: No Smoking Cessation Counseling: No Smoking Exposure: No Stomache/Intestinal Problems Hepatitis: No Obesity: Yes Genital/Urinary Problems Renal Disease: No Reproductive Problems Previous Pregnancies: Yes Musculoskeletal Problems Arthritis: Yes Degenerative Disk Disease: Yes Endocrine Problems Diabetes Mellitus Type 1: No Diabetes Mellitus Type 2: Yes Other Problems Hospitalization: Yes Shingles: No Falls: No Blood Transfusions: No Blood Transfusion Reaction: No Anesthesia Reactions: No Chicken Pox: Yes Measles: Yes Mumps: Yes Cancer: No Subjective Visit Visit for: follow up visit and hip Immunization / Flu Flu Vaccine in the Last 12 Months: Yes Flu Vaccine Exclusion Criteria: No Exclusion Criteria History of Present Illness Chief complaint: PRE-OP LEFT ZACH Patient is 8 weeks status post right total hip replacement. She reports she is doing well. There was an intraoperative fracture and she has been toe-touch weightbearing. She has been full weightbearing and is doing well on the right. The left hip hurts her significantly and she is looking for getting this done. She is already scheduled for surgery in February. For the left side, she had one hip injcetion and NSAIDs. She reports the bilateral knees have been hurting recently. She would like a cortisone injection. She has had this in the past and this has provided great relief Personal History Occupation: DISABLED Red flag PMH: BMI BMI Counceling provided: Yes Pain Pain level (0-10): 5 Pain duration: ALL DAY Pain location: groin Pain quality: sharp, dull and aching Pain timing: increases with activity Associated signs & symptoms: weakness Ambulatory data Ambulatory device: walker Treatments Improvement with previous injections: No Improvement with PT: No Improvement with NSAIDS: no Review of Systems Review of Systems: All systems negative unless otherwise noted in HPI.
== END 2025-01-15 10:03 | disposition home or self-care (01) ==
LOC: HODSRG 09:14
PROVIDERS: PCP Physician Assistant Medical; Referring Provider Physician Assistant Medical; Supervising Provider Orthopaedic Surgery Adult Reconstructive Orthopaedic Surgery; Visit Provider Orthopaedic Surgery Adult Reconstructive Orthopaedic Surgery
DX: Z96.641 Presence of right artificial hip joint (principal); M25.552 Pain in left hip; M25.551 Pain in right hip; M17.0 Bilateral primary osteoarthritis of knee; I10 Essential (primary) hypertension; E78.00 Pure hypercholesterolemia, unspecified; E11.9 Type 2 diabetes mellitus without complications
CPT/HCPCS: 20610; 99213; J3301; J3490; G0463

== ENCOUNTER → 2025-01-15 | Outpatient (CLI) | payer MEDICAID, SELFPAY ==
--- NOTE | 2025-01-15 16:00 | XR_ITS ---
Examination: CT bilateral lower extremities, without contrast. 2-D sagittal reconstructions. 2-D coronal reconstructions. 3-D reconstructions. Date and time of exam:January 15, 2025 1539 hours INDICATION: Left hip pain years, diagnosis unilateral left hip osteoarthritis CTDI: vol (mGy):25.7 DLP: (mGycm):1054 Technique: Multiple 1.25 mm axial sections of the bilateral lower extremities without intravenous contrast have been obtained. 2-D sagittal and coronal reconstructions have been obtained. 3-D reconstructions have been obtained. Low dose protocols were performed. One or more of the following dose reduction techniques were used; automated exposure control, adjustment of the mA and/or KV according to patient size, use of iterative reconstruction technique. Findings: Prominent osteopenia. Total right hip arthroplasty with satisfactory alignment Advanced left hip osteoarthritis, severe narrowing at the hip joint, bone on bone with subarticular cyst formation Severe narrowing medial joint spaces bilaterally Significant narrowing lateral patellofemoral joints No new fractures Significant osteoarthritis lateral joint spaces IMPRESSION: Advanced left hip osteoarthritis Advanced bilateral knee tricompartment osteoarthritis
== END | disposition home or self-care (01) ==
PROVIDERS: PCP Student in an Organized Health Care Education/Training Program; Referring Provider Orthopaedic Surgery Adult Reconstructive Orthopaedic Surgery; Visit Provider Orthopaedic Surgery Adult Reconstructive Orthopaedic Surgery
DX: M16.12 Unilateral primary osteoarthritis, left hip (principal); M17.0 Bilateral primary osteoarthritis of knee
CPT/HCPCS: 72192; 73700

== ENCOUNTER 2025-02-10 05:45 | Day surgery (SDC) | payer MEDICAID, SELFPAY ==
--- NOTE | 2025-02-08 11:40 | EKG_ITS ---
[facility] Test Date: 2025-02-08 Pat Name: RUSSELL KERR Department: Room: - Gender: Female Line Person: REENA : 1965 Requested By: Juan David Heller Order Number: [id number] Reading MD: Juan David Heller Measurements Intervals [place] Rate: 79 P: 30 IN: 199 QRS: -29 QRSD: 93 T: 55 QT: 399 QTc: 459 Interpretive Statements SINUS RHYTHM BORDERLINE LEFT AXIS DEVIATION [QRS AXIS < -20] POSSIBLE RIGHT VENTRICULAR CONDUCTION DELAY [RSR (QR) IN V1/V2] No previous ECG available for comparison /[id number]/[email or web address]/[id number]
[2025-02-08 11:47] VITALS: BMI 30.7
[2025-02-08 13:19] LABS: Basophils # (Auto) 0.0 Thou/mm3 (0.0-0.2); Basophils % (Auto) 0 % (0-2.5); Eosinophils # (Auto) 0.1 Thou/mm3 (0.0-0.5); Eosinophils % (Auto) 1 % (0-10); Hematocrit 34.0 % (36.0-46.0); Hemoglobin 11.2 g/dL (12.0-16.0); Immature Granulocytes Auto 0.02 Thou/mm3 (0.00-0.00); Lymphocytes # (Auto) 2.4 Thou/mm3 (1.0-4.8); Lymphocytes % (Auto) 30 % (10-50); Mean Corpuscular HGB Conc 32.9 g/dl (31.0-37.0); Mean Corpuscular Hemoglobin 29.4 pg (25.0-35.0); Mean Corpuscular Volume 89 fL (80-100); Monocytes # (Auto) 0.3 Thou/mm3 (0.0-0.8); Monocytes % (Auto) 4 % (0-12); Neutrophils # (Auto) 5.3 Thou/mm3 (1.8-7.7); Neutrophils % (Auto) 65 % (37-80); Nucleated Red Blood Cell # 0.00 Thou/mm3 (0.00-0.00); Nucleated Red Blood Cell % 0 /100 WBC (0); Platelet Count 320 Thou/mm3 (140-440); RDW Standard Deviation 50.9 fL (36.4-46.3); Red Blood Count 3.81 Miln/mm3 (4.00-5.20); White Blood Count 8.2 Thou/mm3 (3.6-11.0)
[2025-02-08 13:25] LABS: INR 1.0 (0.9-1.3); Partial Thromboplastin Time 25.9 Seconds (22.0-36.0); Prothrombin Time 10.6 Seconds (9.0-12.2)
[2025-02-08 13:29] LABS: Alanine Aminotransferase 12 U/L (10-49); Albumin, Serum 4.6 gm/dL (3.4-4.8); Albumin/Globulin Ratio 1.8 (1.2-2.2); Alkaline Phosphatase 83 U/L (46-116); Anion Gap 8 (7-16); Aspartate Amino Transferase 11 U/L (0-34); BUN/Creatinine Ratio 18 Ratio (12-20); Bilirubin,Total 0.5 mg/dL (0.3-1.2); Blood Urea Nitrogen 14 mg/dL (9-23); Calcium 10.3 mg/dL (8.3-10.6); Calcium (Corrected) 10.3 mg/dL (8.5-10.1); Carbon Dioxide 28.3 mMol/L (20.0-31.0); Chloride 103 mMol/L (98-107); Creatinine (Component) 0.8 mg/dL (0.6-1.3); Estimated Creatinine Clearance 88.5 mL/min (>60); Globulin 2.5 gm/dL (2.3-3.5); Glucose 95 mg/dL (74-106); Osmolality,Calculated 278 (275-295); Potassium 3.8 mMol/L (3.4-5.1); Sodium 139 mMol/L (136-145); Total Protein 7.1 gm/dL (5.7-8.2); eGFR > 60 See Note
[2025-02-10] VITALS (10 sets, daily range): BP systolic 100–118; BP diastolic 63–83; PULSE 77–90; RESP 12–19; TEMP 36.1–36.5; O2SAT 96–100; BMI 30.6
[2025-02-10] MEDS: MELOXICAM 7.5 MG TABLET PO (06:30)
[2025-02-10] MEDS: PREGABALIN 75 MG CAPSULE PO (06:30)
[2025-02-10] MEDS: ACETAMINOPHEN 325 MG TABLET 650 MG PO (06:30)
--- NOTE | 2025-02-10 07:15 | CHAP ---
Visited briefly with patient giving encouragement and prayer.
--- NOTE | 2025-02-10 07:30 | XR_ITS ---
Examination: Left hip 2 views TECHNIQUE: Portable AP left hip 2 views Date and time: February 10, 2025 0916 hours INDICATIONS: Total left hip arthroplasty today FINDINGS: Total left hip arthroplasty. Satisfactory alignment. No fracture IMPRESSION: Total left hip arthroplasty with satisfactory alignment
--- NOTE | 2025-02-10 09:50 | PD.SUROPNT ---
Date of Procedure 02/10/25 Pre Op Diagnosis left hip osteoarthritis Post Op Diagnosis left hip osteoarthritis Procedure left total hip replacement Findings full thickness cartilage loss and osteophytes Procedure Description Indications: The patient is a [59]y.o. year-old with a longstanding history of left hip pain. After considering the patient's condition and the impact of their hip injury on the patient's quality of life and risks of nonoperative treatment, total hip replacement was offered as a reasonable option. Prior to the surgery I discussed the nature of the hip replacement surgery including alternatives to surgery and the purpose of, and indications for proceeding with surgery. I discussed that this surgery is a shared decision between the patient and the surgeon. Risks and benefits and alternatives of the procedure have been explained to the patient and their family. Anesthesia complications and risks include but are not limited to stroke, heart attack, and . The surgical risks include but are not limited to infection, instability/dislocation, bleeding, nerve and blood vessel injury, deep vein thrombosis, pulmonary embolus, stiffness, pain, scar, need for reoperation, leg length discrepancy, thigh numbness, weakness, and mechanical failure of the implant including loosening, metal complications, metal allergy, wear or breakage. I discussed the expected recovery from surgery and the importance of compliance with all our pre and post-operative recommendations in order to maximize the recovery. The patient/family understands the risks of loss of life, loss of limb and, loss of function and wishes to proceed. They understand they are at increased risk for infection given their history of smoking. A signed and witnessed consent was obtained and placed in the chart. Patient Positioning: The patient was placed in the lateral decubitus position on a standard table using a pegboard. An axillary role was placed. All extremities were padded to ensure adequate protection. A kerr catheter was aseptically inserted. Time Out: A timeout was performed prior to the procedure which verified the correct patient, positioning, operation to be performed, operative site, antibiotics, allergies, imaging, and any other concerns. All parties were in agreement. Procedure in detail: The operative site was cleaned and draped in the usual sterile fashion. A final timeout was performed with all parties in agreement. We first placed percutaneous camila pins above the ASIS and attached a hip array. A modified anterolateral approach to the hip was utilized. A 16cm skin incision was made centered over the greater trochanter in line with the femur. This was taken down through skin and subcutaneous tissue using a 10 blade. Bleeding was controlled using electrocautery. The fascia was identified and split in line with the femur. The charnley retractor was then placed. The abductor insertion was identified and a split made in the anterior 1/3 of the tendon proximally. Retractors were placed and the gluteus minimus was visualized. A capsulotomy was made down to the femoral neck anterior to the minimus. A split was then made in the anterior 1/3 of the vastus lateralis. A retractor was then placed anterior to the femoral shaft, the tendon was tagged with #1 ethibond sutures and a U-shaped split was made in the anterior 1/3 of the abductor tendon being careful to leave enough tendon to re-attach. The hip was then gently externally rotated as the anterior tissues were taken down with the tendon and capsule as one sleeve. Once the anterior tissue had been release off of bone a bone hook was placed and the hip was gently dislocated. Retractors were placed around the femoral neck and the femoral neck osteotomy was then made to freshen up the cut. The femoral head removed. The leg was then placed in extension and retractors were placed anterior and posterior to the acetabulum. We first mapped the acetabulum and pelvis with a probe. The inferior capsule was release to improved visualization and the labrum and osteophytes around the acetabulum were removed. The acetabulum was then reamed to bleeding bone with adequate wall coverage and the cup was impacted into place using the [employer] robot. Screws were then placed followed by the liner which was impacted and confirmed to be seated. We then turned our attention to the femur. The leg was brought into external rotation and the femur was exposed. A canal finder was used followed by a box osteotomy and the femur was broached sequentially. The trial stem was then left in and the hip was trialed using various neck offsets and head sizes until the appropriate size was found based on leg length, stability. Once we were satisfied with the construct a cross-table AP pelvis radiograph was obtained to confirm appropriate positioning and sizing. The hip was then dislocated and the trials were then removed and the final stem impacted into placed. The hip was then again trialed and the appropriate head size identified. The piedra taper was then cleaned and dried and the final head impact into place and tested. The acetabulum was irrigated and confirmed to be free of debris. The hip was then reduced and taken through range of motion. The hip was stable in abduction and external rotation, adduction and external rotation, flexion past 90 degrees and internal rotation past 20 degrees. It did not sublux throughout range of motion and no impingement was detected. Leg lengths were appropriately restored based on preoperative leg lengths and intraoperative testing. Lengths and offset were further verified with the robot. We then removed the pins and the greater troch marker. The hip was then copiously irrigated with dilute betadine followed by normal saline. The hip was then injected with the cocktail per protocol The hip was the closed in layers. The abductor tendon was closed with #1 ethibond. The fascia was closed with 0 Vicryl followed by an 0 V-lock. . The deep layer was closed with 0-Vicryl and the subcutaneous layer by a 2-0 Vicryl. The subdermal layer was closed with a 3-0 monocryl. The skin was then cleaned and dried and steri-strips placed followed by a sterile dressing. The drapes were then taken down and the patient was placed supine. Leg lengths were confirmed to be appropriate and the patient's lower extremities were warm and well perfused with brisk capillary refill and palpable pulses. The patient was then awoken, transferred to the [facility] and taken to the PACU in stable condition. They tolerated the procedure well. The patient's family/caregiviers were made aware of their condition. Postoperative plan Activity: WBAT, no hip precautions , no active hip abduction DVT Prophylaxis: aspirin 81mg BID Antibiotics: Standard postoperative antibiotics x 24 hours Implants: Pine 50 cup, 3 HO insignia, 1 screws, standard liner, 36-0 head Anesthesia GETA Implants roscoe Pathology / specimen None Pathology comment: none Estimated Blood Loss 150 Condition Stable Disposition same day Surgeon Marv Moreno MD Surgical Staff Operation Date: 02/10/25 07:45 Case Staff Anesthesiologist: Marcin Alicia RN First Assistant: Delmis Roy
--- NOTE | 2025-02-10 09:52 | XR_ITS ---
Examination:Left hip AP, lateral, AP pelvis 3 views Technique: Hip AP lateral, AP pelvis, 3 views Exam date and time:February 10, 2025 1038 hours INDICATIONS: Postop left are placement today. FINDINGS: Total left hip arthroplasty. Satisfactory alignment Right hip total arthroplasty also present with satisfactory alignment Bones of the pelvis intact IMPRESSION: Total left hip arthroplasty with satisfactory alignment.
--- NOTE | 2025-02-10 10:18 | SUR.PHASEI ---
1018: Pt. AAOx4, vitals stable, breathing unlabored, no complaint of pain or nausea, dressing to left hip CDI, no active bleed noted, pt. able to move bilateral legs, cap refill to bilateral feet less than 3 seconds, bilateral dorsalis pedis pulses strong and regular, report received from MD Alicia and Indra RAY.
[2025-02-10] MEDS: HYDROmorphone INJ 2 MG/ML VIAL 0.4 MG IVP (11:26)
--- NOTE | 2025-02-10 12:00 | SUR.PHASEII ---
1200: Pt. AAOx4, vitals stable, breathing unlabored, no complaint of pain or nausea, dressing to left hip CDI, no active bleed noted, pt. able to move bilateral legs, cap refill to bilateral feet less than 3 seconds, bilateral dorsalis pedis pulses strong and regular, pt. walked with physical therapy well, gave discharge instructions to the pt. and her ride, both verbalized understanding and had no further questions. Pt. left with all personal belongings.
== END 2025-02-10 12:00 | disposition home or self-care (01) ==
PROVIDERS: Anesthesiology; PCP Student in an Organized Health Care Education/Training Program; Referring Provider Orthopaedic Surgery Adult Reconstructive Orthopaedic Surgery; Visit Provider Orthopaedic Surgery Adult Reconstructive Orthopaedic Surgery
PROC: (CPT 27130; principal; 2025-02-10 07:30)
DX: M16.12 Unilateral primary osteoarthritis, left hip (principal); Z87.891 Personal history of nicotine dependence; Z01.810 Encounter for preprocedural cardiovascular examination; M25.752 Osteophyte, left hip
CPT/HCPCS: 27130; 20985; 36415; 73501; 73502; 80053; 85025; 85610; 85730; 93005; 97162; A4217; A4649; C1713; C1776; J0690; J1100; J1171; J1885; J2250; J2405; J2704; J3010; J3490; J7030; J7999; A4648; A9270

== ENCOUNTER 2025-03-02 10:55 | Outpatient (AMB) | payer MEDICAID, SELFPAY ==
--- NOTE | 2025-03-02 11:11 | ORTHONT_ITS ---
Vital signs 03/02/25 11:12 Height 1.73 m Height Method Stated Weight 90.86 kg Weight Measurement Method Standing Scale BMI 30.3 BP 116/78 Blood Pressure Source Automatic Cuff Blood Pressure Location Left Upper Arm Position Sitting Respiration 18 Pulse 95 Pulse Source Monitor Temp 98.3 F Temp Source Temporal Artery Scan Pulse Oximetry (%) 92 L Oxygen Delivery Method Room Air Med/Allergies Allergies & Medications Allergies No Known Allergies Allergy (Verified 02/08/25 11:40) Medication Reconciliation cholecalciferol (vitamin D3) 1,250 mcg (50,000 unit) capsule 1,250 mcg PO QWEEK 11/24/24 [History Confirmed 03/02/25] ezetimibe 10 mg tablet (Zetia) 10 mg PO QDAY 11/24/24 [History Confirmed 03/02/25] hydrochlorothiazide 25 mg tablet 12.5 mg PO BID 11/24/24 [History Confirmed 03/02/25] lisinopril 40 mg tablet 40 mg PO DAILY 11/24/24 [History Confirmed 03/02/25] semaglutide (weight loss) 0.5 mg/0.5 mL subcutaneous pen injector (Wegovy) 0.5 mg subcut QWEEK 11/24/24 [History Confirmed 03/02/25] albuterol sulfate 90 mcg/actuation aerosol inhaler 2 inh inhalation Q6H PRN shortness of breath or wheezing 02/08/25 [History Confirmed 03/02/25] azelastine 0.05 % eye drops 1 drp ophthalmic (eye) BID 02/08/25 [History Confirmed 03/02/25] fexofenadine 180 mg tablet 180 mg PO QDAY 02/08/25 [History Confirmed 03/02/25] fluticasone propionate 50 mcg/actuation nasal spray,suspension (Allergy Relief (fluticasone)) 1 spray intranasal QDAY PRN nasal congestion 02/08/25 [History Confirmed 03/02/25] acetaminophen 500 mg tablet (Acetaminophen Extra Strength) 1,000 mg (2 x 500 mg) PO Q6H PRN pain #90 tabs 02/10/25 [Rx Confirmed 03/02/25] aspirin 81 mg tablet,delayed release 81 mg PO BID #60 tabs 02/10/25 [Rx Confirmed 03/02/25] doxycycline hyclate 100 mg tablet 100 mg PO BID #14 tabs 02/10/25 [Rx Confirmed 03/02/25] gabapentin 300 mg capsule 300 mg PO .qhs #30 caps 02/10/25 [Rx Confirmed 03/02/25] sennosides 8.6 mg-docusate sodium 50 mg tablet (Senna-S) 1 tab-cap PO QDAY #30 tabs 02/10/25 [Rx Confirmed 03/02/25] Exam Exam Patient is in no acute distress and is cooperative with the examination today. Breathing is nonlabored. In no respiratory distress. Bilateral extremities were evaluated and demonstrates sensation intact to light touch. Palpable pedal pulses are present. No significant edema is present. Bilateral hips were examined. The patient has no pain with log roll of the hips. Internal rotation to 0 degrees and external rotation to 15 degrees is painless. Negative FADIR. The left knee was examined. The left knee is in [varus] alignment. Range of motion from [0-115] degrees. Knee is stable to varus and valgus as well as AP translation with <5mm. Patient has a [negative] McMurrays. There is [no] pain with patellofemoral compression and [no] crepitus noted. The knee is [tender] to palpation [medially]. The right knee was also examined. The right knee is in [varus] alignment. Range of motion from [0-120] degrees. Knee is stable to varus and valgus as well as AP translation with <5mm. Patient has a [negative] McMurrays. There is [no] pain with patellofemoral compression and [no] crepitus noted. The knee is [tender] to palpation [medially]. Leg lengths are equal Assessment and Plan Problem List (1) Status post total hip replacement, right: Status: Acute Plan: Patient is a 59-year-old female with a left total hip replacement She is doing well. We will send her to pt/. Office Procedures GNS Level of Care Nursing/Assessment Patient Status: Established Patient Nursing Assessment/Reassesment: Medication Reconciliation, Update PMH in EMR and Vital Signs Coordination of Care: Complex Care and Chronic Disease 1-5, Education Complex Pt/Fam, Consent,records obtained, informed consent, Results/Orders obtained and Staff clarify orders Established Patient Charge Established Patient Point Assignment: 95 Established Patient Point Charge: EP Level 3 (80-115) MA Intake Visit Data Collection New Patient or Established: Established Patient (seen at [facility] within 3 years) Reason for Visit:: FOLLOW UP L ZACH 2 WEEKS Seen by Clinical Staff ONLY (RN/MA): No PCP or OBGYN visit in last 3 months: Yes Hx Now: No Do You Feel Safe at Home: Yes Authorities Contacted: N/A Questionairres Past Medical History Past Medical History Have you ever been diagnosed with any of the following: Neurological Problems Seizures: No Cardiology Problems Myocardial Infarction: No Hypercholesterolemia: Yes Congestive Heart Failure: No Hypertension: Yes Varicose Veins: Yes Respiratory Problems Chronic Obstructive Pulmonary Disease (COPD): No Asthma: Yes Smoking: No Smoking Cessation Counseling: No Smoking Exposure: No Stomache/Intestinal Problems Hepatitis: No Obesity: Yes Genital/Urinary Problems Renal Disease: No Reproductive Problems Previous Pregnancies: Yes Musculoskeletal Problems Arthritis: Yes Degenerative Disk Disease: Yes Endocrine Problems Diabetes Mellitus Type 1: No Diabetes Mellitus Type 2: Yes Other Problems Hospitalization: Yes Shingles: No Falls: No Blood Transfusions: No Blood Transfusion Reaction: No Anesthesia Reactions: No Chicken Pox: Yes Measles: Yes Mumps: Yes Cancer: No Surgical History Total Hip Replacement: Yes (LEFT 02/2025) Subjective Visit Visit for: follow up visit, post op #1 and hip (LEFT) Immunization / Flu Flu Vaccine in the Last 12 Months: No Flu Vaccine Exclusion Criteria: No Exclusion Criteria History of Present Illness Chief complaint: PRE-OP LEFT ZACH Patient is 8 weeks status post left total hip replacement. She is doing well. Personal History Occupation: DISABLED Red flag PMH: BMI BMI Counceling provided: Yes Pain Pain level (0-10): 1 Pain duration: ALL DAY Pain location: groin Pain quality: burning Pain timing: increases with activity Associated signs & symptoms: none Ambulatory data Ambulatory device: walker Treatments Improvement with previous injections: No Improvement with PT: Yes Improvement with NSAIDS: no Review of Systems Review of Systems: All systems negative unless otherwise noted in HPI.
[2025-03-02 11:12] VITALS: BP 116/78; PULSE 95; RESP 18; TEMP 36.8; O2SAT 92; BMI 30.3
== END 2025-03-02 11:25 | disposition home or self-care (01) ==
LOC: HODSRG 10:55
PROVIDERS: PCP Physician Assistant Medical; Referring Provider Physician Assistant Medical; Supervising Provider Orthopaedic Surgery Adult Reconstructive Orthopaedic Surgery; Visit Provider Orthopaedic Surgery Adult Reconstructive Orthopaedic Surgery
DX: Z96.641 Presence of right artificial hip joint (principal); I10 Essential (primary) hypertension; E78.00 Pure hypercholesterolemia, unspecified; E11.9 Type 2 diabetes mellitus without complications; Z71.3 Dietary counseling and surveillance; E66.89 Other obesity not elsewhere classified; Z68.30 Body mass index [BMI] 30.0-30.9, adult
CPT/HCPCS: 99213; G0463

== ENCOUNTER 2025-03-30 09:50 | Outpatient (AMB) | payer MEDICAID, SELFPAY ==
--- NOTE | 2025-03-30 10:02 | ORTHONT_ITS ---
Vital signs 03/30/25 10:03 Height 1.73 m Height Method Stated Weight 89.358 kg Weight Measurement Method Standing Scale BMI 29.8 BP 133/82 H Blood Pressure Source Automatic Cuff Blood Pressure Location Left Upper Arm Position Sitting Respiration 19 Pulse 76 Pulse Source Monitor Temp 98.1 F Temp Source Temporal Artery Scan Pulse Oximetry (%) 97 Oxygen Delivery Method Room Air Med/Allergies Allergies & Medications Allergies No Known Allergies Allergy (Verified 03/30/25 10:03) Medication Reconciliation cholecalciferol (vitamin D3) 1,250 mcg (50,000 unit) capsule 1,250 mcg PO QWEEK 11/24/24 [History Confirmed 03/30/25] ezetimibe 10 mg tablet (Zetia) 10 mg PO QDAY 11/24/24 [History Confirmed 03/30/25] hydrochlorothiazide 25 mg tablet 12.5 mg PO BID 11/24/24 [History Confirmed 03/30/25] lisinopril 40 mg tablet 40 mg PO DAILY 11/24/24 [History Confirmed 03/30/25] semaglutide (weight loss) 0.5 mg/0.5 mL subcutaneous pen injector (Wegovy) 0.5 mg subcut QWEEK 11/24/24 [History Confirmed 03/30/25] albuterol sulfate 90 mcg/actuation aerosol inhaler 2 inh inhalation Q6H PRN shortness of breath or wheezing 02/08/25 [History Confirmed 03/30/25] azelastine 0.05 % eye drops 1 drp ophthalmic (eye) BID 02/08/25 [History Confirmed 03/30/25] fexofenadine 180 mg tablet 180 mg PO QDAY 02/08/25 [History Confirmed 03/30/25] fluticasone propionate 50 mcg/actuation nasal spray,suspension (Allergy Relief (fluticasone)) 1 spray intranasal QDAY PRN nasal congestion 02/08/25 [History Confirmed 03/30/25] acetaminophen 500 mg tablet (Acetaminophen Extra Strength) 1,000 mg (2 x 500 mg) PO Q6H PRN pain #90 tabs 02/10/25 [Rx Confirmed 03/30/25] aspirin 81 mg tablet,delayed release 81 mg PO BID #60 tabs 02/10/25 [Rx Confirmed 03/30/25] doxycycline hyclate 100 mg tablet 100 mg PO BID #14 tabs 02/10/25 [Rx Confirmed 03/30/25] gabapentin 300 mg capsule 300 mg PO .qhs #30 caps 02/10/25 [Rx Confirmed 03/30/25] sennosides 8.6 mg-docusate sodium 50 mg tablet (Senna-S) 1 tab-cap PO QDAY #30 tabs 02/10/25 [Rx Confirmed 03/30/25] Exam Exam Patient is in no acute distress and is cooperative with the examination today. Breathing is nonlabored. In no respiratory distress. Bilateral extremities were evaluated and demonstrates sensation intact to light touch. Palpable pedal pulses are present. No significant edema is present. Bilateral hips were examined. The patient has no pain with log roll of the hips. Internal rotation to 0 degrees and external rotation to 15 degrees is painless. Negative FADIR. The left knee was examined. The left knee is in [varus] alignment. Range of motion from [0-115] degrees. Knee is stable to varus and valgus as well as AP translation with <5mm. Patient has a [negative] McMurrays. There is [no] pain with patellofemoral compression and [no] crepitus noted. The knee is [tender] to palpation [medially]. The right knee was also examined. The right knee is in [varus] alignment. Range of motion from [0-120] degrees. Knee is stable to varus and valgus as well as AP translation with <5mm. Patient has a [negative] McMurrays. There is [no] pain with patellofemoral compression and [no] crepitus noted. The knee is [tender] to palpation [medially]. Leg lengths are equal Assessment and Plan Problem List (1) Status post total hip replacement, right: Status: Acute Plan: Patient is a 59-year-old female with a left total hip replacement She is doing well. We will send her to pt. She would like bilateral xrays of her knees Office Procedures GNS Level of Care Nursing/Assessment Patient Status: Established Patient Nursing Assessment/Reassesment: Medication Reconciliation, Update PMH in EMR and Vital Signs Coordination of Care: Complex Care and Chronic Disease 1-5, Education Complex Pt/Fam, Consent,records obtained, informed consent, Results/Orders obtained and Staff clarify orders Established Patient Charge Established Patient Point Assignment: 95 Established Patient Point Charge: EP Level 3 (80-115) MA Intake Visit Data Collection New Patient or Established: Established Patient (seen at [facility] within 3 years) Reason for Visit:: FOLLOW UP L ZACH 4 WEEKS Seen by Clinical Staff ONLY (RN/MA): No PCP or OBGYN visit in last 3 months: Yes Hx Now: No Do You Feel Safe at Home: Yes Authorities Contacted: N/A Questionairres Past Medical History Past Medical History Have you ever been diagnosed with any of the following: Neurological Problems Seizures: No Cardiology Problems Myocardial Infarction: No Hypercholesterolemia: Yes Congestive Heart Failure: No Hypertension: Yes Varicose Veins: Yes Respiratory Problems Chronic Obstructive Pulmonary Disease (COPD): No Asthma: Yes Smoking: No Smoking Cessation Counseling: No Smoking Exposure: No Stomache/Intestinal Problems Hepatitis: No Obesity: Yes Genital/Urinary Problems Renal Disease: No Reproductive Problems Previous Pregnancies: Yes Musculoskeletal Problems Arthritis: Yes Degenerative Disk Disease: Yes Endocrine Problems Diabetes Mellitus Type 1: No Diabetes Mellitus Type 2: Yes Other Problems Hospitalization: Yes Shingles: No Falls: No Blood Transfusions: No Blood Transfusion Reaction: No Anesthesia Reactions: No Chicken Pox: Yes Measles: Yes Mumps: Yes Cancer: No Surgical History Total Hip Replacement: Yes (LEFT 02/2025) Subjective Visit Visit for: follow up visit, post op #2 and hip (LEFT) Immunization / Flu Flu Vaccine in the Last 12 Months: No Flu Vaccine Exclusion Criteria: No Exclusion Criteria History of Present Illness Chief complaint: PRE-OP LEFT ZACH Patient is 6 weeks status post left total hip replacement. She is doing well. Personal History Occupation: DISABLED Red flag PMH: BMI BMI Counceling provided: Yes Pain Pain level (0-10): 1 Pain duration: ALL DAY Pain location: groin Pain quality: burning Pain timing: increases with activity Associated signs & symptoms: none Ambulatory data Ambulatory device: walker Treatments Improvement with previous injections: No Improvement with PT: Yes Improvement with NSAIDS: no Review of Systems Review of Systems: All systems negative unless otherwise noted in HPI.
[2025-03-30 10:03] VITALS: BP 133/82; PULSE 76; RESP 19; TEMP 36.7; O2SAT 97; BMI 29.8
--- NOTE | 2025-03-30 10:13 | XR_ITS ---
Examination: Bilateral knees 2 views Right lateral knee left lateral knee 2 views Bilateral axial knees single view TECHNIQUE: Bilateral AP knees standing single view, bilateral PA knees standing single view flexion Standing right lateral knee left lateral knee 2 views Bilateral axial knees single view Date and time: March 30, 2025 1029 hours INDICATIONS: Right knee pain beginning 5 months ago. FINDINGS: Moderate osteopenia. Severe narrowing [id number] medial joint space right knee Significant narrowing right patellofemoral joint No fracture Advanced narrowing medial joint space left knee with significant osteoarthritis lateral and left patellofemoral joints IMPRESSION: Severe narrowing [id number] medial joint space right knee Significant narrowing right patellofemoral joint Advanced left knee tricompartment osteoarthritis, including severe narrowing medial joint space left knee
--- NOTE | 2025-03-30 10:13 | XR_ITS ---
Examination: Bilateral hips, AP pelvis, 5 views Technique: AP, lateral views both hips, AP pelvis, 5 views Exam date and time: March 30, 2025 1029 hours INDICATIONS: Status post right hip surgery November 25, 2024 left hip surgery February 10, 2025 FINDINGS: Bilateral total hip arthroplasties. Satisfactory alignment. No loosening of the prosthetic components No pelvic fracture Impression: Bilateral total hip arthroplasties with satisfactory alignment
== END 2025-03-30 10:18 | disposition home or self-care (01) ==
LOC: HODSRG 09:50
PROVIDERS: PCP Physician Assistant Medical; Referring Provider Physician Assistant Medical; Supervising Provider Orthopaedic Surgery Adult Reconstructive Orthopaedic Surgery; Visit Provider Orthopaedic Surgery Adult Reconstructive Orthopaedic Surgery
DX: Z96.641 Presence of right artificial hip joint (principal); M17.12 Unilateral primary osteoarthritis, left knee; M25.861 Other specified joint disorders, right knee; I10 Essential (primary) hypertension; E78.00 Pure hypercholesterolemia, unspecified; E11.9 Type 2 diabetes mellitus without complications; E66.9 Obesity, unspecified; Z71.3 Dietary counseling and surveillance; Z68.29 Body mass index [BMI] 29.0-29.9, adult
CPT/HCPCS: 73522; 73564; 99213; G0463

== ENCOUNTER 2025-04-15 09:17 | Outpatient (AMB) | payer MEDICAID, SELFPAY ==
[2025-04-15 09:37] VITALS: BP 139/89; PULSE 72; RESP 19; TEMP 36.6; O2SAT 97
--- NOTE | 2025-04-15 09:37 | ORTHONT_ITS ---
Vital signs 04/15/25 09:37 Height 1.73 m Height Method Stated Weight 89.981 kg Weight Measurement Method Standing Scale BMI 30.0 BP 139/89 H Blood Pressure Source Automatic Cuff Blood Pressure Location Left Upper Arm Position Sitting Respiration 19 Pulse 72 Pulse Source Monitor Temp 97.9 F Temp Source Temporal Artery Scan Pulse Oximetry (%) 97 Oxygen Delivery Method Room Air Med/Allergies Allergies & Medications Allergies No Known Allergies Allergy (Verified 04/15/25 09:38) Medication Reconciliation cholecalciferol (vitamin D3) 1,250 mcg (50,000 unit) capsule 1,250 mcg PO QWEEK 11/24/24 [History Confirmed 04/15/25] ezetimibe 10 mg tablet (Zetia) 10 mg PO QDAY 11/24/24 [History Confirmed 04/15/25] hydrochlorothiazide 25 mg tablet 12.5 mg PO BID 11/24/24 [History Confirmed 04/15/25] lisinopril 40 mg tablet 40 mg PO DAILY 11/24/24 [History Confirmed 04/15/25] semaglutide (weight loss) 0.5 mg/0.5 mL subcutaneous pen injector (Wegovy) 0.5 mg subcut QWEEK 11/24/24 [History Confirmed 04/15/25] albuterol sulfate 90 mcg/actuation aerosol inhaler 2 inh inhalation Q6H PRN shortness of breath or wheezing 02/08/25 [History Confirmed 04/15/25] azelastine 0.05 % eye drops 1 drp ophthalmic (eye) BID 02/08/25 [History Confirmed 04/15/25] fexofenadine 180 mg tablet 180 mg PO QDAY 02/08/25 [History Confirmed 04/15/25] fluticasone propionate 50 mcg/actuation nasal spray,suspension (Allergy Relief (fluticasone)) 1 spray intranasal QDAY PRN nasal congestion 02/08/25 [History Confirmed 04/15/25] acetaminophen 500 mg tablet (Acetaminophen Extra Strength) 1,000 mg (2 x 500 mg) PO Q6H PRN pain #90 tabs 02/10/25 [Rx Confirmed 04/15/25] aspirin 81 mg tablet,delayed release 81 mg PO BID #60 tabs 02/10/25 [Rx Confirmed 04/15/25] doxycycline hyclate 100 mg tablet 100 mg PO BID #14 tabs 02/10/25 [Rx Confirmed 04/15/25] gabapentin 300 mg capsule 300 mg PO .qhs #30 caps 02/10/25 [Rx Confirmed 04/15/25] sennosides 8.6 mg-docusate sodium 50 mg tablet (Senna-S) 1 tab-cap PO QDAY #30 tabs 02/10/25 [Rx Confirmed 04/15/25] Exam Exam Patient is in no acute distress and is cooperative with the examination today. Breathing is nonlabored. In no respiratory distress. Bilateral extremities were evaluated and demonstrates sensation intact to light touch. Palpable pedal pulses are present. No significant edema is present. Bilateral hips were examined. The patient has no pain with log roll of the hips. Internal rotation to 0 degrees and external rotation to 15 degrees is painless. Negative FADIR. The left knee was examined. The left knee is in [varus] alignment. Range of motion from [0-115] degrees. Knee is stable to varus and valgus as well as AP translation with <5mm. Patient has a [negative] McMurrays. There is [no] pain with patellofemoral compression and [no] crepitus noted. The knee is [tender] to palpation [medially]. The right knee was also examined. The right knee is in [varus] alignment. Range of motion from [0-120] degrees. Knee is stable to varus and valgus as well as AP translation with <5mm. Patient has a [negative] McMurrays. There is [no] pain with patellofemoral compression and [no] crepitus noted. The knee is [tender] to palpation [medially]. Leg lengths are equal Assessment and Plan Problem List (1) Status post total hip replacement, right: Status: Acute Plan: Patient is a 59-year-old female with a left total hip replacement She is doing well. We will send her to pt. She would like bilateral xrays of her knees (2) Degenerative arthritis of knee, bilateral: Status: Acute Plan: Recommend knee cortisone injection as patient would like to proceed with conservative treatment at this time. The risks and benefits of the procedure were reviewed with the patient and patient gave verbal consent to continue with the procedure. Procedure: performed by Dr. Moreno Using sterile technique the left knee was thoroughly prepped with alcohol, and approximately 1 cc of Depo-Medrol 80mg/mL and 4 cc of 0.2% ropivacaine was injected without resistance into the medial tibial femoral joint space. The patient tolerated the procedure. Recommend knee cortisone injection as patient would like to proceed with conservative treatment at this time. The risks and benefits of the procedure were reviewed with the patient and patient gave verbal consent to continue with the procedure. Procedure: performed by Dr. Moreno Using sterile technique the Right knee was thoroughly prepped with alcohol, and approximately 1 cc of Depo-Medrol 80mg/mL and 4 cc of 0.2% ropivacaine was injected without resistance into the medial tibial femoral joint space. The patient tolerated the procedure. Office Procedures GNS Level of Care Nursing/Assessment Patient Status: Established Patient Nursing Assessment/Reassesment: Medication Reconciliation, Update PMH in EMR and Vital Signs Coordination of Care: Complex Care and Chronic Disease 1-5, Education Complex Pt/Fam, Consent,records obtained, informed consent, Results/Orders obtained and Staff clarify orders Established Patient Charge Established Patient Point Assignment: 95 Established Patient Point Charge: EP Level 3 (80-115) MA Intake Visit Data Collection New Patient or Established: Established Patient (seen at [facility] within 3 years) Reason for Visit:: FOLLOW UP L ZACH 6 WEEKS Seen by Clinical Staff ONLY (RN/MA): No PCP or OBGYN visit in last 3 months: Yes Hx Now: No Do You Feel Safe at Home: Yes Authorities Contacted: N/A Questionairres Past Medical History Past Medical History Have you ever been diagnosed with any of the following: Neurological Problems Seizures: No Cardiology Problems Myocardial Infarction: No Hypercholesterolemia: Yes Congestive Heart Failure: No Hypertension: Yes Varicose Veins: Yes Respiratory Problems Chronic Obstructive Pulmonary Disease (COPD): No Asthma: Yes Smoking: No Smoking Cessation Counseling: No Smoking Exposure: No Stomache/Intestinal Problems Hepatitis: No Obesity: Yes Genital/Urinary Problems Renal Disease: No Reproductive Problems Previous Pregnancies: Yes Musculoskeletal Problems Arthritis: Yes Degenerative Disk Disease: Yes Endocrine Problems Diabetes Mellitus Type 1: No Diabetes Mellitus Type 2: Yes Other Problems Hospitalization: Yes Shingles: No Falls: No Blood Transfusions: No Blood Transfusion Reaction: No Anesthesia Reactions: No Chicken Pox: Yes Measles: Yes Mumps: Yes Cancer: No Surgical History Total Hip Replacement: Yes (LEFT 02/2025) Subjective Visit Visit for: follow up visit, post op #3, hip (LEFT) and knee (BILATERAL PAIN) Immunization / Flu Flu Vaccine in the Last 12 Months: No Flu Vaccine Exclusion Criteria: No Exclusion Criteria History of Present Illness Chief complaint: ZACH FOLLOW UP/BL KNEE INJ Patient is doing well with her bilateral total knee replacements. She has bilateral knee arthritis of significant severity. She would like to get cortisone injections today Personal History Occupation: DISABLED Red flag PMH: BMI BMI Counceling provided: Yes Pain Pain level (0-10): 1 Pain duration: ALL DAY Pain location: groin Pain quality: burning Pain timing: increases with activity Associated signs & symptoms: none Ambulatory data Ambulatory device: cane Treatments Number of previous injections: 12 Improvement with previous injections: Yes Improvement with PT: Yes Improvement with NSAIDS: no Review of Systems Review of Systems: All systems negative unless otherwise noted in HPI.
== END 2025-04-15 10:07 | disposition home or self-care (01) ==
LOC: HODSRG 09:17
PROVIDERS: PCP Physician Assistant Medical; Referring Provider Physician Assistant Medical; Supervising Provider Orthopaedic Surgery Adult Reconstructive Orthopaedic Surgery; Visit Provider Orthopaedic Surgery Adult Reconstructive Orthopaedic Surgery
DX: M17.0 Bilateral primary osteoarthritis of knee (principal); Z96.642 Presence of left artificial hip joint; I10 Essential (primary) hypertension; E78.00 Pure hypercholesterolemia, unspecified; E11.9 Type 2 diabetes mellitus without complications; Z96.653 Presence of artificial knee joint, bilateral; E66.9 Obesity, unspecified; Z71.3 Dietary counseling and surveillance; Z68.30 Body mass index [BMI] 30.0-30.9, adult
CPT/HCPCS: 20610; 99213; J1010; J2795; G0463

== ENCOUNTER → 2025-05-31 | Outpatient (CLI) | payer MEDICAID, SELFPAY ==
--- NOTE | 2025-05-31 14:00 | XR_ITS ---
Examination: CT right lower extremity, without contrast. 2-D sagittal reconstructions. 2-D coronal reconstructions. 3-D reconstructions. Date and time of exam: May 31, 2025, 1403 hours INDICATIONS: Diagnosis primary unilateral osteoarthritis right knee right knee pain 10 years CTDI: vol (mGy): 16 DLP: (mGycm): 1049 Technique: Multiple 1.25 mm axial sections of the right lower extremity without intravenous contrast have been obtained. 2-D sagittal and coronal reconstructions have been obtained. 3-D reconstructions have been obtained. Low dose protocols were performed. One or more of the following dose reduction techniques were used; automated exposure control, adjustment of the mA and/or KV according to patient size, use of iterative reconstruction technique. Findings: Significant osteopenia Total right hip arthroplasty. Satisfactory alignment Advanced right knee tricompartment osteoarthritis Severe narrowing medial joint space, [id number] No fracture No patellar dislocation IMPRESSION: Advanced right knee tricompartment osteoarthritis, including severe narrowing medial joint space, [id number]
== END | disposition home or self-care (01) ==
PROVIDERS: PCP Student in an Organized Health Care Education/Training Program; Referring Provider Orthopaedic Surgery Adult Reconstructive Orthopaedic Surgery; Visit Provider Orthopaedic Surgery Adult Reconstructive Orthopaedic Surgery
DX: M17.11 Unilateral primary osteoarthritis, right knee (principal); M25.861 Other specified joint disorders, right knee
CPT/HCPCS: 73700

== ENCOUNTER 2025-07-15 11:02 | Outpatient (AMB) | payer MEDICAID, SELFPAY ==
--- NOTE | 2025-07-15 11:34 | PD.ORTHCLVIS ---
Vital signs 07/15/25 11:35 Height 1.73 m Height Method Stated Weight 86.353 kg Weight Measurement Method Standing Scale BMI 28.8 BP 126/81 Blood Pressure Source Automatic Cuff Blood Pressure Location Right Upper Arm Position Sitting Respiration 18 Pulse 151 H Pulse Source Monitor Temp 98.0 F Temp Source Temporal Artery Scan Pulse Oximetry (%) 99 Oxygen Delivery Method Room Air Med/Allergies Allergies & Medications Allergies No Known Allergies Allergy (Verified 07/15/25 11:36) Medication Reconciliation cholecalciferol (vitamin D3) 1,250 mcg (50,000 unit) capsule 1,250 mcg PO QWEEK 11/24/24 [History Confirmed 07/15/25] ezetimibe 10 mg tablet (Zetia) 10 mg PO QDAY 11/24/24 [History Confirmed 07/15/25] hydrochlorothiazide 25 mg tablet 12.5 mg PO BID 11/24/24 [History Confirmed 07/15/25] lisinopril 40 mg tablet 40 mg PO DAILY 11/24/24 [History Confirmed 07/15/25] semaglutide (weight loss) 0.5 mg/0.5 mL subcutaneous pen injector (Wegovy) 0.5 mg subcut QWEEK 11/24/24 [History Confirmed 07/15/25] albuterol sulfate 90 mcg/actuation aerosol inhaler 2 inh inhalation Q6H PRN shortness of breath or wheezing 02/08/25 [History Confirmed 07/15/25] azelastine 0.05 % eye drops 1 drp ophthalmic (eye) BID 02/08/25 [History Confirmed 07/15/25] fexofenadine 180 mg tablet 180 mg PO QDAY 02/08/25 [History Confirmed 07/15/25] fluticasone propionate 50 mcg/actuation nasal spray,suspension (Allergy Relief (fluticasone)) 1 spray intranasal QDAY PRN nasal congestion 02/08/25 [History Confirmed 07/15/25] acetaminophen 500 mg tablet (Acetaminophen Extra Strength) 1,000 mg (2 x 500 mg) PO Q6H PRN pain #90 tabs 02/10/25 [Rx Confirmed 07/15/25] aspirin 81 mg tablet,delayed release 81 mg PO BID #60 tabs 02/10/25 [Rx Confirmed 07/15/25] doxycycline hyclate 100 mg tablet 100 mg PO BID #14 tabs 02/10/25 [Rx Confirmed 07/15/25] gabapentin 300 mg capsule 300 mg PO .qhs #30 caps 02/10/25 [Rx Confirmed 07/15/25] sennosides 8.6 mg-docusate sodium 50 mg tablet (Senna-S) 1 tab-cap PO QDAY #30 tabs 02/10/25 [Rx Confirmed 07/15/25] Exam Exam Patient is in no acute distress and is cooperative with the examination today. Breathing is nonlabored. In no respiratory distress. Bilateral extremities were evaluated and demonstrates sensation intact to light touch. Palpable pedal pulses are present. No significant edema is present. Bilateral hips were examined. The patient has no pain with log roll of the hips. Internal rotation to 30 degrees and external rotation to 30 degrees is painless. Negative FADIR. Incision is clean dry and intact The left knee was examined. The left knee is in varus alignment. Range of motion from 0-115 degrees. Knee is stable to varus and valgus as well as AP translation with <5mm. Patient has a negative McMurrays. There is no pain with patellofemoral compression and no crepitus noted. The knee is tender to palpation medially. The right knee was also examined. The right knee is in varus alignment. Range of motion from 0-120 degrees. Knee is stable to varus and valgus as well as AP translation with <5mm. Patient has a negative McMurrays. There is no pain with patellofemoral compression and no crepitus noted. The knee is tender to palpation medially. X-rays of the bilateral knees demonstrate significant joint space narrowing medially with complete obliteration of the medial and lateral joint space and varus arthritis. Osteophytes are present Assessment and Plan Problem List (1) Status post total hip replacement, right: Status: Acute (2) Degenerative arthritis of knee, bilateral: Status: Acute Plan: We are planning for a right total knee replacement in 9 days Plan ASSESSMENT AND PLAN 1. Bilateral knee pain: The patient has been experiencing bilateral knee pain, with the right knee being more painful. We would start on the right side. She has undergone over 10 injections and physical therapy, which provided only temporary relief. Given the persistence of symptoms and the failure of conservative treatments, a right knee replacement is recommended. The nature and purpose of the total knee replacement, alternative method(s) of treatment, the material risks involved, and the possibility of complications were fully explained to the patient. The patient does NOT have any of the following contraindications to TKA: - Active infection of the knee joint, OR - Active systemic bacteremia, OR - Active skin infection or open wound at surgical site, OR - Neuropathic arthritis, OR - Severe, rapidly progressive neurological disease, OR - Severe medical condition that makes risks of surgery outweigh the potential benefit The patient was told the most common risks and complications associated with a total knee replacement include, but are not limited to: blood clots in the leg, fatal pulmonary embolism, dislocation of the prosthesis, intraoperative and postoperative fractures of the femur or tibia, infection, failure of the prosthesis or grafting materials, complications from anesthesia, reactions to blood transfusions, postoperative leg length inequality, instability of the knee replacement, nerve damage or injury, vascular injury, delayed wound healing, infection, other injury or even . In addition, there are risks associated with anesthesia given during this operation. Also, the patient was told that after undergoing a total knee replacement there may still be persistent pain or disability. The patient was informed that the success of this operation in part depends upon the mechanical devices which are going to be implanted and that these devices can fail or malfunction, and may need to be repaired or replaced and there are no guarantees as to the longevity of this device or its parts and that it or its parts could fail prematurely. The patient was also notified that during the course of surgery, there may be a need to use bone graft from donors, and that any bone graft used will be carefully screened for communicable diseases, including AIDS, hepatitis, Carlitos-Creutzfeldt, or other diseases, but despite the screening procedures, there is a small chance that they could contract one of these diseases. Finally, the patient was asked to follow completely and fully with all advice and recommended treatments, and that recovery and ultimate outcome are affected by their compliance with recommended treatment. We discussed the risks, benefits and treatment alternatives, and the patient is interested in proceeding with surgery. We will try to set this up as expeditiously as possible. Office Procedures GNS Level of Care Nursing/Assessment Patient Status: Established Patient Nursing Assessment/Reassesment: Medication Reconciliation, Update PMH in EMR and Vital Signs Coordination of Care: Complex Care and Chronic Disease 1-5, Education Complex Pt/Fam, Consent,records obtained, informed consent, Results/Orders obtained and Staff clarify orders Established Patient Charge Established Patient Point Assignment: 95 Established Patient Point Charge: EP Level 3 (80-115) MA Intake Visit Data Collection New Patient or Established: Established Patient (seen at [facility] within 3 years) Reason for Visit:: PRE-OP RT TKA Seen by Clinical Staff ONLY (RN/MA): No Verbal consent obtained for Telemed visit?: No Sack Cleaner Required: No PCP or OBGYN visit in last 3 months: Yes Hx Now: No Do You Feel Safe at Home: Yes Authorities Contacted: N/A Questionairres Past Medical History Past Medical History Have you ever been diagnosed with any of the following: Neurological Problems Seizures: No Cardiology Problems Myocardial Infarction: No Hypercholesterolemia: Yes Congestive Heart Failure: No Hypertension: Yes Varicose Veins: Yes Respiratory Problems Chronic Obstructive Pulmonary Disease (COPD): No Asthma: Yes Smoking: No Smoking Cessation Counseling: No Smoking Exposure: No Stomache/Intestinal Problems Hepatitis: No Obesity: Yes Genital/Urinary Problems Renal Disease: No Reproductive Problems Previous Pregnancies: Yes Musculoskeletal Problems Arthritis: Yes Degenerative Disk Disease: Yes Endocrine Problems Diabetes Mellitus Type 1: No Diabetes Mellitus Type 2: Yes Other Problems Hospitalization: Yes Shingles: No Falls: No Blood Transfusions: No Blood Transfusion Reaction: No Anesthesia Reactions: No Chicken Pox: Yes Measles: Yes Mumps: Yes Cancer: No Surgical History Total Hip Replacement: Yes (LEFT 02/2025) Subjective Visit Visit for: follow up visit and knee Immunization / Flu Flu Vaccine in the Last 12 Months: No Flu Vaccine Exclusion Criteria: No Exclusion Criteria History of Present Illness Chief complaint: BILATERAL KNEE PAIN RIGHT WORSE HISTORY OF PRESENT ILLNESS IMarv, have obtained verbal consent from the patient, to be recorded during this encounter which may include, but not limited to, medical history, examination, treatment plans, and relevant health information.? Patient was informed that recording will be read and reviewed by myself before inclusion in the medical chart. The patient is a 59-year-old female who has undergone bilateral hip replacements and is doing well. She presents for evaluation of bilateral knee pain that has been ongoing for a while. The patient reports that her hips are doing fantastic, but she continues to experience bilateral knee pain, with the right knee being more problematic. She has received over 10 injections in her knees, which provided temporary relief, particularly for the left knee. In addition to the injections, she has also tried anti-inflammatories and physical therapy. Initially, the knee injections were effective, but their efficacy has diminished over time. Personal History Occupation: DISABLED Red flag PMH: BMI BMI Counceling provided: Yes Pain Pain level (0-10): 8 Pain duration: ALL DAY Pain location: inside (medial) and outside (lateral) Pain quality: sharp, dull and aching Pain timing: night, increases with activity and stairs Associated signs & symptoms: numbness, weakness and stiffness Ambulatory data Ambulatory device: cane Treatments Improvement with previous injections: Yes Improvement with PT: No Improvement with NSAIDS: yes Review of Systems Review of Systems: All systems negative unless otherwise noted in HPI.
[2025-07-15 11:35] VITALS: BP 126/81; PULSE 151; RESP 18; TEMP 36.7; O2SAT 99; BMI 28.8
== END 2025-07-15 11:43 | disposition home or self-care (01) ==
LOC: HODSRG 11:02
PROVIDERS: PCP Physician Assistant Medical; Referring Provider Physician Assistant Medical; Supervising Provider Orthopaedic Surgery Adult Reconstructive Orthopaedic Surgery; Visit Provider Orthopaedic Surgery Adult Reconstructive Orthopaedic Surgery
DX: M25.561 Pain in right knee (principal); M25.562 Pain in left knee; M17.0 Bilateral primary osteoarthritis of knee; Z96.643 Presence of artificial hip joint, bilateral; I10 Essential (primary) hypertension; E66.9 Obesity, unspecified; Z68.28 Body mass index [BMI] 28.0-28.9, adult
CPT/HCPCS: 99213; G0463

== ENCOUNTER 2025-07-23 05:58 | Day surgery (SDC) | payer MEDICAID, SELFPAY ==
[2025-07-22 08:36] VITALS: BMI 28.8
[2025-07-22 09:49] LABS: Basophils # (Auto) 0.0 Thou/mm3 (0.0-0.2); Basophils % (Auto) 1 % (0-2.5); Eosinophils # (Auto) 0.1 Thou/mm3 (0.0-0.5); Eosinophils % (Auto) 2 % (0-10); Hematocrit 33.1 % (36.0-46.0); Hemoglobin 10.7 g/dL (12.0-16.0); Immature Granulocytes Auto 0.01 Thou/mm3 (0.00-0.00); Lymphocytes # (Auto) 2.2 Thou/mm3 (1.0-4.8); Lymphocytes % (Auto) 36 % (10-50); Mean Corpuscular HGB Conc 32.3 g/dl (31.0-37.0); Mean Corpuscular Hemoglobin 28.5 pg (25.0-35.0); Mean Corpuscular Volume 88 fL (80-100); Monocytes # (Auto) 0.3 Thou/mm3 (0.0-0.8); Monocytes % (Auto) 5 % (0-12); Neutrophils # (Auto) 3.4 Thou/mm3 (1.8-7.7); Neutrophils % (Auto) 57 % (37-80); Nucleated Red Blood Cell # 0.00 Thou/mm3 (0.00-0.00); Nucleated Red Blood Cell % 0 /100 WBC (0); Platelet Count 286 Thou/mm3 (140-440); RDW Standard Deviation 49.2 fL (36.4-46.3); Red Blood Count 3.76 Miln/mm3 (4.00-5.20); White Blood Count 6.1 Thou/mm3 (3.6-11.0)
[2025-07-22 09:57] LABS: INR 1.0 (0.9-1.3); Partial Thromboplastin Time 24.0 Seconds (22.0-36.0); Prothrombin Time 10.5 Seconds (9.0-12.2)
[2025-07-22 10:05] LABS: Alanine Aminotransferase 11 U/L (10-49); Albumin, Serum 4.5 gm/dL (3.4-4.8); Albumin/Globulin Ratio 1.6 (1.2-2.2); Alkaline Phosphatase 82 U/L (46-116); Anion Gap 12 (7-16); Aspartate Amino Transferase 16 U/L (0-34); BUN/Creatinine Ratio 14 Ratio (12-20); Bilirubin,Total 0.5 mg/dL (0.3-1.2); Blood Urea Nitrogen 10 mg/dL (9-23); Calcium 9.7 mg/dL (8.3-10.6); Calcium (Corrected) 9.7 mg/dL (8.5-10.1); Carbon Dioxide 29.0 mMol/L (20.0-31.0); Chloride 103 mMol/L (98-107); Creatinine (Component) 0.7 mg/dL (0.6-1.3); Estimated Creatinine Clearance 97.0 mL/min (>60); Globulin 2.8 gm/dL (2.3-3.5); Glucose 93 mg/dL (74-106); Osmolality,Calculated 285 (275-295); Potassium 3.5 mMol/L (3.4-5.1); Sodium 144 mMol/L (136-145); Total Protein 7.3 gm/dL (5.7-8.2); eGFR > 60 See Note
[2025-07-23] VITALS (18 sets, daily range): BP systolic 114–142; BP diastolic 62–96; PULSE 70–97; RESP 12–20; TEMP 36.2–37.1; O2SAT 93–99; BMI 29.0
[2025-07-23] MEDS: MELOXICAM 7.5 MG TABLET PO (06:30)
[2025-07-23] MEDS: PREGABALIN 75 MG CAPSULE PO (06:31)
[2025-07-23] MEDS: ACETAMINOPHEN 325 MG TABLET 650 MG PO (06:31)
[2025-07-23] MEDS: RINGERS LACTATED 1000 ML 1,000 ML 20 ML IV (06:31)
--- NOTE | 2025-07-23 07:22 | SUR.PREOP ---
Patient expressed gratitude for prayer before their procedure.
--- NOTE | 2025-07-23 09:05 | ESOP_ITS ---
Date of Procedure 07/23/25 Pre Op Diagnosis right knee osteoarthritis Post Op Diagnosis right knee osteoarthritis Procedure right total knee replacement Findings full thickness cartilage loss and osteophytes Procedure Description Indication: The patient has a long history of right knee pain. X-rays show degenerative arthritis involving the knee. Over the past several years the patient has had increasing pain, progressive limitation in function. He has failed conservative measures including activity modification, physical therapy, injections, anti- inflammatories, and assistive devices. After a lengthy discussion of the risks and benefits, the patient presents now for total knee replacement. The nature and purpose of the total knee replacement, alternative method(s) of treatment, the material risks involved, and the possibility of complications were fully explained to the patient. The patient was told the most common risks and complications associated with a total knee replacement include, but are not limited to blood clots in the leg, fatal pulmonary embolism, dislocation of the prosthesis, intraoperative and postoperative fractures of the femur or tibia, infection, failure of the prosthesis or grafting materials, complications from anesthesia, reactions to blood transfusions, postoperative leg length inequality, instability of the knee replacement, nerve damage or injury, vascular injury, delayed wound healing, infections, other injury or even . In addition, there are risks associated with anesthesia given during this operation, temporary or permanent numbness on the skin lateral to the incision can be a complication unique to total knee surgery, and kneeling can be painful after knee replacement surgery. Also, the patient was told that after undergoing a total knee replacement there may still be pain or disability. We discussed with the patient that we will be using a robot-assisted technology. We discussed that there is a possibility of converting to manual instrumentation. The patient was informed that the success of this operation in part depends upon the mechanical devices which are going to be implanted and that these devices can fail or malfunction, and may need to be repaired or replaced and there are no guarantees as to the longevity of this device or its part and that it or its parts could fail prematurely. Finally, the patient was asked to follow completely and fully with all advice and recommended treatments, and that recovery and ultimate outcome are affected by their compliance with recommended treatment. Surgical technique: Patient was marked and consented in the pre-operative area. The patient was brought to the operating room and placed on the operating table in a supine position. Prior to positioning, a timeout procedure was performed between the surgeon, the anesthesiologist, and the nursing staff where the patient and the operative side were identified and confirmed. After adequate general anesthetic was obtained, the right lower extremity was prepped and draped in the usual sterile fashion. A weight based dose of Cefazolin were administered within 1 edson r prior to incision. The robot was preregistered and calibrated before the incision. The extremity was exsanguinated with an esmarch badge and tourniquet inflated to 250mmHg. A midline incision was made. A median parapatellar arthrotomy was made. The patella was subluxed laterally. A medial release was performed to expose the medial tibia. His femoral and tibial pins were placed through an intra incisional manner for both cases. Every effort was made to ensure that the distalmost aspect of the pin was hung in the second cortex. The arrays were then tightened several times to ensure that it was fixed for the remainder of the case. Both femoral and tibial checkpoints were then placed. We then went through the registration process of the bone. We then assessed the knee deformity and attempted to correct it. We also used the robot to aid in judging laxity in both extension and flexion. Final based on laxity and alignment we changed the preoperative assessment to obtain proper proper implant positioning and to correct deformity. Attention was then placed to the tibia. We made a tibial cut using the robot ensuring that both the MCL and the patella tendon were protected with retractors. We then went to the femur and made the posterior cut followed by the anterior cut and the anterior chamfer. The bone was then removed and we made a distal femur cut and a posterior chamfer cut. We verified all cuts. A trial reduction was performed with a size 4 femoral component and a size 4 keeled tibial component. The patella tracked centrally, and no lateral retinacular release was necessary. The trial implants were removed. The arrays, pins, and checkpoints were all removed. We performed a verification that all pins were removed. The cut bone surfaces were lavaged. A size 4 right femoral component, a size 4 keeled tibial component were impacted into position. The knee was felt to be well balanced in the sagittal and coronal plane. The final 2x10 mm cruciate- substituting articular insert was impacted into the tibial tray. The knee was b rought out to full extension, flexed up to 120 degrees. It was stable to varus and valgus stress and appropriately balanced in flexion and extension. The wounds were copiously irrigated following deflation of tourniquet. The medial retinaculum was reapproximated with #1 vicryl and quill. The subcutaneous tissues were closed with 0 and 2-0 interrupted Vicryl. The skin was closed with 3-0 Monofilament V loc suture. A sterile dressing was applied. The patient was transferred to a bed and brought to recovery in stable condition. The patient tolerated the procedure well. There were no intraoperative complications. Sponge and needle counts were correct times 2. As the attending surgeon, I attest I was present and performed the entire operation. Grafts/Implants Size 4 CR Femur Size 4 Tibia 12mm poly CS Anesthesia spinal Implants Implants comments: roscoe Pathology / specimen None Pathology comment: none Estimated Blood Loss 150 Condition Stable Disposition same day Surgeon Marv Moreno MD Surgical Staff Operation Date: 07/23/25 07:30 Case Staff Anesthesiologist: Marcin Alicia RN First Assistant: Judi Ochoa
--- NOTE | 2025-07-23 09:09 | XR_ITS ---
EXAMINATION: Right knee 2 views TECHNIQUE: AP lateral right knee 2 views Date and time: July 23, 2025, 10:15 a.m. INDICATIONS: Postop knee replacement today. FINDINGS: Moderate osteopenia. Total right knee arthroplasty. Satisfactory alignment IMPRESSION: Total right knee arthroplasty with satisfactory alignment
--- NOTE | 2025-07-23 09:21 | SUR.PHASEI ---
0921: Pt. AAOx4, vitals stable, breathing unlabored, complaint of pain, no complaint of nausea, dressing to right knee CDI, no active bleed noted, pt. able to move bilateral legs, cap refill to bilateral feet less than 3 seconds, bilateral dorsalis pedis pulses strong and regular, report received from MD Alicia and Cinthia RAY.
[2025-07-23] MEDS: HYDROmorphone INJ 2 MG/ML VIAL 0.4 MG IVP ×3 (09:32→10:23)
--- NOTE | 2025-07-23 11:23 | SUR.PHASEII ---
0951: Discharge instructions fiven to the pt. and her daughter, both verbalized understanding and had no further questions.
[2025-07-23] MEDS: oxyCODONE HCL 5 MG IR TAB PO (12:12)
--- NOTE | 2025-07-23 12:45 | SUR.PHASEII ---
1245: Pt. AAOx4, vitals stable, breathing unlabored, no complaint of pain or nausea, dressing CDI, no active bleed, report given to Olga Woods RN to resume care.
--- NOTE | 2025-07-23 13:17 | SUR.PHASEII ---
1317: Pt. ambulating with physical therapy tolerating well, report received from Olga Woods RN.
--- NOTE | 2025-07-23 14:35 | SUR.PHASEII ---
1435: Pt. AAOx4, vitals stable, breathing unlabored, no complaint of pain or nausea, dressing to right knee CDI, no active bleed noted, bilateral dorsalis pedis pulses strong and regular, cap refill to bilateral feet less than 3 seconds, pt. tolerated sips of water well, pt. ambulated to wheelchair with steady gait and no assist, no complications. Gave discharge instructions to the pt. and her ride, both verbalized understanding and had no further questions. Pt. left with all personal belongings.
== END 2025-07-23 14:35 | disposition home or self-care (01) ==
PROVIDERS: Anesthesiology; PCP Student in an Organized Health Care Education/Training Program; Referring Provider Orthopaedic Surgery Adult Reconstructive Orthopaedic Surgery; Visit Provider Orthopaedic Surgery Adult Reconstructive Orthopaedic Surgery
PROC: (CPT 27447; principal; 2025-07-23 07:30)
DX: M17.11 Unilateral primary osteoarthritis, right knee (principal); M25.761 Osteophyte, right knee
CPT/HCPCS: 27447; 20985; 36415; 73560; 80053; 85025; 85610; 85730; 97162; A4217; A4649; C1713; C1776; J0690; J1100; J1171; J1885; J2250; J2405; J2704; J2795; J3010; J3490; J7120; J7999; A4648; A9270

== ENCOUNTER 2025-08-10 13:54 | Outpatient (AMB) | payer MEDICAID, SELFPAY ==
--- NOTE | 2025-08-10 14:26 | PD.ORTHCLVIS ---
Vital signs 08/10/25 14:29 Height 1.73 m Height Method Stated Weight 83.121 kg Weight Measurement Method Standing Scale BMI 27.8 BP 104/70 Blood Pressure Source Automatic Cuff Blood Pressure Location Left Upper Arm Position Sitting Respiration 16 Pulse 104 H Pulse Source Monitor Temp 97.6 F Temp Source Temporal Artery Scan Pulse Oximetry (%) 98 Oxygen Delivery Method Room Air Med/Allergies Allergies & Medications Allergies No Known Allergies Allergy (Verified 08/10/25 14:28) Medication Reconciliation cholecalciferol (vitamin D3) 1,250 mcg (50,000 unit) capsule 1,250 mcg PO QWEEK 11/24/24 [History Confirmed 08/10/25] ezetimibe 10 mg tablet (Zetia) 10 mg PO QDAY 11/24/24 [History Confirmed 08/10/25] hydrochlorothiazide 25 mg tablet 12.5 mg PO DAILY 11/24/24 [History Confirmed 08/10/25] lisinopril 40 mg tablet 40 mg PO DAILY 11/24/24 [History Confirmed 08/10/25] semaglutide (weight loss) 0.5 mg/0.5 mL subcutaneous pen injector (Wegovy) 1.7 mg subcut QWEEK 11/24/24 [History Confirmed 08/10/25] albuterol sulfate 90 mcg/actuation aerosol inhaler 2 inh inhalation Q6H PRN shortness of breath or wheezing 02/08/25 [History Confirmed 08/10/25] fexofenadine 180 mg tablet 180 mg PO QDAY 02/08/25 [History Confirmed 08/10/25] fluticasone propionate 50 mcg/actuation nasal spray,suspension (Allergy Relief (fluticasone)) 1 spray intranasal QDAY PRN nasal congestion 02/08/25 [History Confirmed 08/10/25] acetaminophen 500 mg tablet (Acetaminophen Extra Strength) 1,000 mg (2 x 500 mg) PO Q6H PRN pain #90 tabs 07/23/25 [Rx Confirmed 08/10/25] aspirin 81 mg tablet,delayed release 81 mg PO BID #60 tabs 07/23/25 [Rx Confirmed 08/10/25] doxycycline hyclate 100 mg tablet 100 mg PO BID #14 tabs 07/23/25 [Rx Confirmed 08/10/25] gabapentin 300 mg capsule 300 mg PO .qhs #30 caps 07/23/25 [Rx Confirmed 08/10/25] oxycodone 5 mg tablet 5 mg PO Q6H PRN pain #28 tabs 07/23/25 [Rx Confirmed 08/10/25] sennosides 8.6 mg-docusate sodium 50 mg tablet (Senna-S) 1 tab-cap PO QDAY #30 tabs 07/23/25 [Rx Confirmed 08/10/25] Exam Exam Patient is in no acute distress and is cooperative with the examination today. Breathing is nonlabored. In no respiratory distress. Bilateral extremities were evaluated and demonstrates sensation intact to light touch. Palpable pedal pulses are present. No significant edema is present. Bilateral hips were examined. The patient has no pain with log roll of the hips. Internal rotation to 30 degrees and external rotation to 30 degrees is painless. Negative FADIR. Incision is clean dry and intact The left knee was examined. The left knee is in varus alignment. Range of motion from 0-115 degrees. Knee is stable to varus and valgus as well as AP translation with <5mm. Patient has a negative McMurrays. There is no pain with patellofemoral compression and no crepitus noted. The knee is tender to palpation medially. The right knee was also examined. The right knee is in varus alignment. Range of motion from 0-120 degrees. Knee is stable to varus and valgus as well as AP translation with <5mm. Patient has a negative McMurrays. There is no pain with patellofemoral compression and no crepitus noted. The knee is tender to palpation medially. X-rays of the bilateral knees demonstrate significant joint space narrowing medially with complete obliteration of the medial and lateral joint space and varus arthritis. Osteophytes are present Assessment and Plan Problem List (1) Status post total hip replacement, right: Status: Acute (2) Degenerative arthritis of knee, bilateral: Status: Acute Plan: We are planning for a right total knee replacement in 9 days Plan Patient is doing well status post right total knee replacement. we will see her in 6 weeks for routine follow-up Office Procedures GNS Level of Care Nursing/Assessment Patient Status: Established Patient Nursing Assessment/Reassesment: Medication Reconciliation, Update PMH in EMR and Vital Signs Coordination of Care: Complex Care and Chronic Disease 1-5, Education Complex Pt/Fam, Consent,records obtained, informed consent, Results/Orders obtained and Staff clarify orders Established Patient Charge Established Patient Point Assignment: 95 Established Patient Point Charge: EP Level 3 (80-115) MA Intake Visit Data Collection New Patient or Established: Established Patient (seen at [facility] within 3 years) Reason for Visit:: 2 WK R TKA Seen by Clinical Staff ONLY (RN/MA): No Verbal consent obtained for Telemed visit?: No S3B Multi Sensor Operator Required: No PCP or OBGYN visit in last 3 months: Yes Hx Now: No Do You Feel Safe at Home: Yes Authorities Contacted: N/A Questionairres Past Medical History Past Medical History Have you ever been diagnosed with any of the following: Neurological Problems Seizures: No Cardiology Problems Myocardial Infarction: No Hypercholesterolemia: Yes Congestive Heart Failure: No Hypertension: Yes Varicose Veins: Yes Respiratory Problems Chronic Obstructive Pulmonary Disease (COPD): No Asthma: Yes Smoking: No Smoking Cessation Counseling: No Smoking Exposure: No Stomache/Intestinal Problems Hepatitis: No Obesity: Yes Genital/Urinary Problems Renal Disease: No Reproductive Problems Previous Pregnancies: Yes Musculoskeletal Problems Arthritis: Yes Degenerative Disk Disease: Yes Endocrine Problems Diabetes Mellitus Type 1: No Diabetes Mellitus Type 2: Yes Other Problems Hospitalization: Yes Shingles: No Falls: No Blood Transfusions: No Blood Transfusion Reaction: No Anesthesia Reactions: No Chicken Pox: Yes Measles: Yes Mumps: Yes Cancer: No Surgical History Total Hip Replacement: Yes (LEFT 02/2025) Subjective Visit Visit for: follow up visit and knee Immunization / Flu Flu Vaccine in the Last 12 Months: No Flu Vaccine Exclusion Criteria: No Exclusion Criteria History of Present Illness Chief complaint: 2 WK R TKA HISTORY OF PRESENT ILLNESS IaMrv, have obtained verbal consent from the patient, to be recorded during this encounter which may include, but not limited to, medical history, examination, treatment plans, and relevant health information.? Patient was informed that recording will be read and reviewed by myself before inclusion in the medical chart. The patient is a 59-year-old female who has undergone bilateral hip replacements and is doing well. She is now doing well status post right total knee replacement Personal History Occupation: DISABLED Red flag PMH: BMI BMI Counceling provided: Yes Pain Pain level (0-10): 8 Pain duration: ALL DAY Pain location: inside (medial) and outside (lateral) Pain quality: sharp, dull and aching Pain timing: night, increases with activity and stairs Associated signs & symptoms: numbness, weakness and stiffness Ambulatory data Ambulatory device: cane Treatments Improvement with previous injections: Yes Improvement with PT: No Improvement with NSAIDS: yes Review of Systems Review of Systems: All systems negative unless otherwise noted in HPI.
[2025-08-10 14:29] VITALS: BP 104/70; PULSE 104; RESP 16; TEMP 36.4; O2SAT 98; BMI 27.8
== END 2025-08-10 14:45 | disposition home or self-care (01) ==
LOC: HODSRG 13:54
PROVIDERS: PCP Student in an Organized Health Care Education/Training Program; Referring Provider Student in an Organized Health Care Education/Training Program; Supervising Provider Orthopaedic Surgery Adult Reconstructive Orthopaedic Surgery; Visit Provider Orthopaedic Surgery Adult Reconstructive Orthopaedic Surgery
DX: Z47.1 Aftercare following joint replacement surgery (principal); Z96.651 Presence of right artificial knee joint; Z96.641 Presence of right artificial hip joint; M17.12 Unilateral primary osteoarthritis, left knee; I10 Essential (primary) hypertension; E66.9 Obesity, unspecified; Z68.27 Body mass index [BMI] 27.0-27.9, adult
CPT/HCPCS: 99213; G0463